=== PATIENT | female | born 1950 | race Caucasian/White ===

== ENCOUNTER 2017-04-11 08:49 | Inpatient (IN) | payer MEDICARE, OTHER ==
[~2017-04-11] VITALS: Ht 167.6 cm; Wt 86.0 kg
--- NOTE | 2017-04-11 08:48 | ED.REPORT ---
HPI-Extremity Problem Lower Date of Service Apr 11, 2017 ED Provider: Dakota Soto Patient is a 65 year old male with a hx of HTN and EtOH abuse who presents to the ED via EMS s/p falling in her kitchen while making breakfast this morning. She landed on her L side and complained of L hip and L arm pain. Medics were unable to get her off the floor due to her pain so the gave her Ketamine to transport her. Patient states that she fell because she simply lost her footing. She denies loss of consciousness or fainting or chest symptoms prior to the fall. She takes lisinopril, metoprolol, amlodipine, and chlorthalidone. Patient last drank last night. She has not eaten yet today. Nursing Notes Stated Complaint: LEFT HIP PAIN Nursing Notes Reviewed: Yes Allergies: Coded Allergies: No Known Allergies (Unverified Allergy, Unknown, 04/11/17) Scheduled Amlodipine (Amlodipine) 5 Mg Tablet 10 MG PO DAILY Lisinopril (Lisinopril) 20 Mg Tablet 40 MG PO BID Metoprolol Succinate ER (Metoprolol Succinate ER) 50 Mg Tab.er.24h 50 MG PO DAILY Pantoprazole DR (Protonix) 40 Mg Tablet 40 MG PO BIDAC General Time Seen by MD: 08:48 Chief Complaint Hip injury left Hx Obtained From: EMS Arrived By: Ambulance Onset Occurred: Just prior to arrival Caused by: Fall on ground Immunizations: Unknown Past Medical History Past Medical History GI bleed HTN irritable bowel syndrome EtOH abuse (5th a day) Past Surgical History Bypass Penectomy Smoking History Current Every Day Smoker Social History Other Social History: Review of Systems Musculoskeletal: Reports: Extremity pain, Joint pain Neurologic: Denies: Change LOC Complete sys rev & neg: except as marked. Physical Exam Initial Vital Signs Vital Signs (First) Date Time Temp Pulse Resp B/P Pulse Ox O2 Delivery O2 Flow Rate FiO2 04/11/17 08:51 36.9 103 18 190/157 100 Room Air Initial VS: Reviewed, Vital signs abnormal Head / Eyes: Atraumatic, Normocephalic Respiratory: Breath sounds normal, Clear to auscultation, No respiratory distress Cardiovascular: Regular rate & rhythm, Heart sounds normal, Intact distal pulses Abdomen / GI: Soft, Non-tender, No guarding, No rebound, No distention Skin: Warm, Dry Neurologic: Alert, Oriented, Nonfocal Psychiatric: Mood/affect normal, Behavior normal, Normal thought content Lower Extremity / Pelvis / MS: Neurologic intact, Vascular intact externally rotated and shortened left lower extremity with normal pulses Ankle / Foot: Neurologic intact, Vascular intact Neck: Atraumatic, Supple, Full range of motion, Non-tender Left Shoulder: Positive: Swelling present... Massive swelling in L upper arm with ecchymosis, crepitus present. Interpretation & Diagnostics Lab Results Interpretation Result Diagram: 04/11/17 0907 04/11/17 0907 Test 04/11/17 09:07 White Blood Count 9.6th/mm3 (3.8-10.1) Red Blood Count 3.94mil/mm3 (3.90-5.20) Hemoglobin 12.0g/dL (12.0-15.6) Hematocrit 34.7% (35.0-46.0) Mean Corpuscular Volume 88.1fL (81-100) Mean Corpuscular Hemoglobin 30.5pg (27.0-35.0) Mean Corpuscular Hemoglobin Concent 34.6% (32.0-37.0) Red Cell Distribution Width 12.8% (12.3-15.4) Platelet Count 263bil/L (150-400) Neutrophils (%) (Auto) 66.4% (40-74) Lymphocytes (%) (Auto) 19.9% (14-46) Monocytes (%) (Auto) 13.4% (4-12) Eosinophils (%) (Auto) 0% (0-5) Basophils (%) (Auto) 0.1% (0-3) Prothrombin Time 10.1sec (8.1-12.5) Prothromb Time International Ratio 0.95ratio Sodium Level 138mEq/L (134-144) Potassium Level 4.0mEq/L (3.5-5.2) Chloride Level 99mEq/L (97-108) Carbon Dioxide Level 14mmol/L (18-29) Blood Urea Nitrogen 31mg/dL (8-27) Creatinine 1.62mg/dL (0.57-1.00) Estimat Glomerular Filtration Rate 46mL/min (>59) Glucose Level 139mg/dL (60-99) Calcium Level 8.4mg/dL (8.5-10.1) Total Bilirubin 0.5mg/dL (0.0-1.2) Aspartate Amino Transf (AST/SGOT) 49U/L (0-50) Alanine Aminotransferase (ALT/SGPT) 21U/L (0-32) Alkaline Phosphatase 90U/L (25-165) Total Protein 7.0g/dL (6.4-8.4) Albumin 3.7g/dL (3.4-5.0) X-Ray Chest Interpretation Chest Xray Interpretation: IMPRESSION: No acute cardiopulmonary disease. Dictated by: Asim Charles M.D. on 04/11/2017 at 10:03 Approved by: Asim Charles M.D. on 04/11/2017 at 10:04 View: Portable, 1 view Interpretation / Wet Read by: Interpret - Radiologist X-Ray Interpretation Xray Interpretation: IMPRESSION: Comminuted impacted fracture of the left humeral neck as before. Dictated by: Asim Charles M.D. on 04/11/2017 at 10:05 Approved by: Asim Charles M.D. on 04/11/2017 at 10:07 X-Ray Ordered: Humerus left Interpretation / Wet Read by: Interpret - Radiologist Xray Interpretation: IMPRESSION: Comminuted impacted left humeral neck fracture. Dictated by: Asim Charles M.D. on 04/11/2017 at 10:04 Approved by: Asim Charles M.D. on 04/11/2017 at 10:05 X-Ray Ordered: Shoulder left Interpretation / Wet Read by: Interpret - Radiologist Xray Interpretation: IMPRESSION: Moderately displaced subtrochanteric spiral fracture of the proximal left femur. Dictated by: Asim Charles M.D. on 04/11/2017 at 10:01 Approved by: Asim Charles M.D. on 04/11/2017 at 10:03 X-Ray Ordered: Pelvis, Hip left Re-Eval/Medical Decision Source of Hx: Old records Re-Evaluation/Progress : Time of Eval: 10:10 Re-Evaluation/Progress Note: Rechecked pt who is now alert and oriented. Discussed imaging results. Discussed plan for admission. Patient understands and agrees with plan. All questions addressed at this time. Patient does not know why she fell but denies LOC. Consultation #1: Referral / Consult Name: Bernard Aguirre DO Consulted With: Orthopedic Call Returned at: 10:05 Wellness Program Administrator: Will see patient, Agrees with eval, Agrees with plan Note: Discussed pt's case. Will see pt. Consultation #2: Referral / Consult Name: Connor Rizvi Consulted With: Hospitalist Call Returned at: 10:23 Wellness Program Administrator: Will see patient, Agrees with eval, Agrees with plan, Accepts admit Note: Discussed pt's case. Accepts admit. Counseled Regarding: Diagnosis, Lab results, Need for admission Discharge & Departure Impression: Primary Impression: Subtrochanteric fracture of femur Encounter type: initial encounter Fracture type: closed Fracture alignment : nondisplaced Laterality: left Qualified Code: S72.25XA - Nondisplaced subtrochanteric fracture of left femur, initial encounter for closed fracture Additional Impression: Fracture of neck of left humerus Encounter type: initial encounter Fracture type: closed Qualified Code: S42.212A - Unspecified displaced fracture of surgical neck of left humerus, initial encounter for closed fracture Disposition: ADMITTED TO HOSPITAL Discharge Condition All VS Reviewed: Yes Condition: Stable Referrals: Thomas Dunbar ND (PCP) Willie Attestation Portions of this note were transcribed by David Hahn. I, Dr. Soto personally performed the history, physical exam and medical decision-making; I reviewed and confirmed the accuracy of the information in the transcribed note. Signed by: Willie Anne, 04/11/17 copies to: Thomas Dunbar ND, Kirk H MD Apr 11, 2017 08:48 DAVID HAHN Apr 11, 2017 09:20
[~2017-04-11 08:49] MED LIST: AMLO5TAB2 PO; LISI-567 PO; METO-272 PO; PANT40TA2 PO
[2017-04-11 08:51] VITALS: BP 190/157; PULSE 103; RESP 18; O2SAT 100
[2017-04-11] MEDS ORDERED: Ondansetron 2 mg/mL 2 mL Inj IVPUSH PRN ×3 (08:55→15:50)
[2017-04-11 09:12] LABS: BASOPHILS % (AUTO) 0.1 % (0-3); EOSINOPHILS % (AUTO) 0 % (0-5); MONOCYTES % (AUTO) 13.4 % (4-12); Mean Corpuscular Hemoglobin 30.5 pg (27.0-35.0); Mean Corpuscular Volume 88.1 fL (81-100); NEUTROPHILS % (AUTO) 66.4 % (40-74); Platelet Count 263 bil/L (150-400)
[2017-04-11 09:27] LABS: INR 0.95 ratio
[2017-04-11] MEDS: HYDROmorphone 1 mg/mL Inj IVPUSH PRN ×3 (10:03→12:53)
--- NOTE | 2017-04-11 10:05 | DRSVH ---
PROCEDURE: X-RAY PELVIS W/LAT HIP (LT) ([id number]) INDICATIONS: 66 year-old female with left hip pain after fall. TECHNIQUE: AP pelvis with lateral view(s) of the left hip(s). COMPARISON: None. FINDINGS: Bones: There is a moderately displaced spiral fracture of the proximal left femoral shaft, extending from the level of the trochanters down 14.3 cm. Pelvic ring appears intact. No suspicious bony lesio ns. Soft tissues: The visualized bowel gas pattern is normal. No suspicious soft tissue calcifications. There is bilateral iliac and femoral atherosclerosis. IMPRESSION: Moderately displaced subtrochanteric spiral fracture of the proximal left femur. Dictated by: Asim Charles M.D. on 04/11/2017 at 10:01 Approved by: Asim Charles M.D. on 04/11/2017 at 10:03
--- NOTE | 2017-04-11 10:06 | DRSVH ---
PROCEDURE: X-RAY CHEST ONE VIEW ([id number]) INDICATIONS: 66 year-old female with left hip fracture after ground level fall. TECHNIQUE: One view of the chest was acquired. COMPARISON: None. FINDINGS: Surgical changes and devices: None. Lungs and pleura: No pleural effusions or pneumothorax. Lungs are clear. Mediastinum: Mediastinal contours appear normal. Heart size is normal. There is aortic atheroscler osis. Bones and chest wall: No suspicious bony lesions. Overlying soft tissues appear unremarkable. IMPRESSION: No acute cardiopulmonary disease. Dictated by: Asim Charles M.D. on 04/11/2017 at 10:03 Approved by: Asim Charles M.D. on 04/11/2017 at 10:04
--- NOTE | 2017-04-11 10:07 | DRSVH ---
PROCEDURE: X-RAY LEFT SHOULDER, MINIMUM TWO VIEWS ([id number]) INDICATIONS: 66 year-old female with left shoulder pain after ground level fall. TECHNIQUE: 3 views of the shoulder were acquired. COMPARISON: None. FINDINGS: Bones: There is a comminuted impacted fracture of the left humeral neck, with involvement of the left greater tuberosity. No suspicious bony lesions. Visualized ribs appear intact. Soft tissues: No suspicious soft tissue calcifications. IMPRESSION: Comminuted impacted left humeral neck fracture. Dictated by: Asim Charles M.D. on 04/11/2017 at 10:04 Approved by: Asim Charles M.D. on 04/11/2017 at 10:05
--- NOTE | 2017-04-11 10:08 | DRSVH ---
PROCEDURE: X-RAY LEFT HUMERUS, MINIMUM TWO VIEWS ([id number]) INDICATIONS: 66 year-old female with left arm pain after fall. TECHNIQUE: 2 views of the humerus were acquired. COMPARISON: [facility], CR, XR SHOULDER MIN 2VW LT, 04/11/2017, 9:19. FINDINGS: Bones: Mildly displaced comminuted impacted fracture of the left humeral neck is again noted. The mo re distal left humeral shaft appears intact. No suspicious bony lesions. Soft tissues: No suspicious soft tissue calcifications. There is significant overlying subcutaneous edema in the proximal and mid left upper arm. IMPRESSION: Comminuted impacted fracture of the left humeral neck as before. Dictated by: Asim Charles M.D. on 04/11/2017 at 10:05 Approved by: Asim Charles M.D. on 04/11/2017 at 10:07
[2017-04-11] MEDS ORDERED: HYDROmorphone 1 mg/mL Inj IVPUSH PRN (10:10)
[2017-04-11] MEDS ORDERED: Ondansetron 2 mg/mL 2 mL Inj IV PRN (10:10)
[2017-04-11] MEDS ORDERED: Alum-Mag Hydrox-Simeth 30 mL Suspension PO PRN ×2 (10:35→15:50)
[2017-04-11 11:15] VITALS: BP 128/68; PULSE 91; RESP 17; O2SAT 95
--- NOTE | 2017-04-11 11:57 | NUR ---
Admission report received, patient admitted to [facility] room 1011 at 1145hrs. assumed care at that time.
[2017-04-11 11:58] VITALS: BP 125/72; PULSE 88; RESP 19; O2SAT 97
[2017-04-11 11:59] LABS: APPEARANCE,URINE HAZY (CLEAR,HAZY); COLOR,URINE YELLOW (YELLOW); OCCULT BLOOD,URINE TRACE (NEGATIVE)
[2017-04-11 12:00] LABS: UROBILINOGEN,URINE NORMAL (NORMAL)
[2017-04-11] MEDS ORDERED: HYG25 PO (12:15)
[2017-04-11] MEDS ORDERED: LISI40TA PO (12:15)
[2017-04-11] MEDS ORDERED: OMEP20CA11 PO (12:15)
[2017-04-11] MEDS ORDERED: Polyethylene Glycol (PEG) 17 Gm Powder PO PRN (15:50)
[2017-04-11] MEDS: Heparin 5,000 Unit/mL Inj SUBQ SCH (16:23)
--- NOTE | 2017-04-11 17:16 | DRSVH ---
PROCEDURE: X-RAY LEFT FEMUR, TWO VIEWS ([id number]) INDICATIONS: trauma TECHNIQUE: 2 views of the femur were acquired. COMPARISON: [facility], CR, XR PELVIS W LATERAL HIP LT, 04/11/2017, 9:14. FINDINGS: Bones: Moderately displaced subtrochanteric spiral fracture again seen involving the proximal left fe mur similar to prior examination. No additional fractures seen. Osteoarthritic changes redemonstrate d. Osteopenia present. Soft tissues: No suspicious soft tissue calcifications or masses. Vascular calcifications indicate atherosclerosis. IMPRESSION: Moderately displaced subtrochanteric spiral fracture of the proximal left femur. Dictated by: Mac MCCAIN Interpreted: Pranav Erazo MD on 04/11/2017 at 14:37 Approved by: Pranav Erazo M.D. on 04/11/2017 at 17:14
[2017-04-11 17:37] VITALS: BP 148/70; PULSE 94; RESP 20; O2SAT 98
--- NOTE | 2017-04-11 18:11 | CONS ---
[address] [address] CONSULTATION REPORT PATIENT: TITO ARANGO : 1950 MR#: [id number] ADMIT: 04/11/2017 JOB ID: [id number] DATE OF SERVICE: 04/11/2017 ORTHOPEDIC CONSULTATION: CHIEF COMPLAINT: Left shoulder and left hip pain. HISTORY OF PRESENT ILLNESS: This is a 66-year-old female that states she was up late last night prepping food. She is unsure if she slipped. She landed directly onto her left shoulder and her left hip. Her was unable to get her up to be transported to the hospital and thus she was transported by ambulance. Upon presentation to [facility] she was diagnosed a proximal humerus as well as a peritrochanteric hip fracture. Orthopedics was thus consulted for further evaluation and treatment. She was admitted to the hospitalist service. The patient is comfortable in bed currently. She has yet to be given a sling but is keeping her arm against her side, which she states is comfortable. She states any motion to the left shoulder or the left hip causes her significant pain. Her left hip feels better propped up on some pillows. She denies any paresthesias to the left upper or lower extremities. She denies any other associated symptoms or injuries. PAST MEDICAL HISTORY: Hypertension. PAST SURGICAL HISTORY: Bypass, panniculectomy. SOCIAL HISTORY: The patient smokes half a pack of cigarettes per day. Drinks a few glasses of wine daily. Denies illicit drug use. She is a retired nurse. FAMILY HISTORY: Noncontributory. MEDICATIONS: Please see electronic medical record for full list of patient's medications. ALLERGIES: No known drug allergies. REVIEW OF SYSTEMS: The patient denies any fevers, sweats, chills, chest pain, short of breath nausea, vomiting, diarrhea. Complains mainly of left shoulder and left hip pain as described in the history of present illness. PHYSICAL EXAMINATION: General: The patient is alert, in no apparent distress. HEENT: Normocephalic, atraumatic. Extraocular movements intact. Nares patent. Lungs: No audible wheeze. No overt signs of respiratory distress. Neuro: Cranial nerves 2-12 are intact. Extremities: On gross observation of the patient's left shoulder, no open wounds, abrasions, or ecchymosis. There is tenderness to palpation of the proximal humerus. No tenderness to the clavicle or to the scapular body. The patient has palpable distal radial and ulnar pulses. She has completely intact sensation in the median, radial, ulnar, and axillary nerve distribution. There is no tenderness to palpation to the elbow or wrist, including the anatomic snuffbox. She has full range of motion of the hand and wrist, including a full composite fist, without any difficulty. Observation of the patient's left hip: The hip is in a flexed position on a pillow and in slight external rotation. There is moderate swelling to the hip and no open wounds or abrasions or ecchymosis. Tenderness to palpation to the proximal femur. No tenderness to palpation to the knee or ankle. She is able to dorsiflex and plantar flex the ankle, but any motion of the knee reproduces the left hip and groin pain. There are palpable dorsalis pedis and posterior tib pulses and completely intact sensation throughout the left lower extremity. DIAGNOSTIC STUDIES: AP of the pelvis, as well as a lateral of the hip, demonstrate a peritrochanteric hip fracture including the intertrochanteric, specifically the lesser trochanter extending to the subtrochanteric region. Four views of the left femur also confirmed the same findings. Two views of the humerus and two views of the left shoulder were obtained, which demonstrate a three part proximal humerus fracture involving the surgical neck and the greater tuberosity. There is mild valgus angulation and mild displacement of the tuberosity. IMPRESSION: 1. Left peritrochanteric hip fracture. 2. Left proximal humerus fracture. PLAN: I discussed with the patient at length her diagnosis. She understands that the left hip will undergo surgical fixation with open reduction and internal fixation of the left peritrochanteric fracture, likely with cables and an intramedullary nail. This will be performed tomorrow and she will be made n.p.o. at midnight. She understands the risks include but are not limited to neurovascular injury, tendon injury, infection, failure of fixation, stiffness, and persistent pain, all of which may require further intervention. The patient had all questions answered. Consent was signed and placed in the chart. In regards to the patient's left shoulder, I will have a sling ordered for her to utilize. She is to stay in the sling at all times. Due to the minimal displacement of her fracture I gave her the option due to this being a polytrauma for continued conservative treatment versus proceeding with open reduction and internal fixation of left proximal humerus in a staged fashion, likely in a few days. The patient understands all the risks, benefits, alternatives, and indications, and has opted to continue with conservative treatment. I will have nursing apply a sling, which she is to stay on at all times for the next two weeks. We will initiate some elbow range of motion at two weeks and continue to follow her along radiographically. She is to be strict nonweightbearing onto the left upper extremity and maintained in the sling.
--- NOTE | 2017-04-11 18:42 | PCM.HPMED ---
Subjective Date of Service Apr 11, 2017 Primary Provider: Admitting Physician: Connor Rizvi Primary Care Physician: Thomas Dunbar ND Attending Physician: Connor Rizvi Chief Complaint: left hip and left shoulder pain History of Present Illness: 65-year-old female, with past history as noted below and notable for hypertension and heavy alcohol use presents after a reported accidental fall and resulting severe left hip and shoulder pain. She says she was in the kitchen and even though she is not sure exactly how she fell she thinks she may have tripped over something. She denies any loss of consciousness or hitting her head. She thinks her left shoulder must have hit the counter before landing on her left hip. She wasn't able to standup due to severe pain and thus EMS was summoned. Per ED report: "Medics were unable to get her off the floor due to her pain so the gave her Ketamine to transport her." Review of Systems: Constitutional: Negative, except as otherwise mentioned in the history above. Ophthalmologic: Negative, except as otherwise mentioned in the history above. Cardiovascular: Negative, except as otherwise mentioned in the history above. Respiratory: Negative, except as otherwise mentioned in the history above. Gastrointestinal: Negative, except as otherwise mentioned in the history above. Genitourinary: Negative, except as otherwise mentioned in the history above. Musculoskeletal: Negative, except as otherwise mentioned in the history above. Neurological: Negative, except as otherwise mentioned in the history above. Psychiatric: Negative, except as otherwise mentioned in the history above. Hematologic/Lymphatic: Negative, except as otherwise mentioned in the history above. Allergic/Immunologic: Negative, except as otherwise mentioned in the history above. Allergies Coded Allergies: No Known Allergies (Unverified Allergy, Unknown, 04/11/17) Home Medications Amlodipine 10 Mg PO DAILY Lisinopril 40 Mg PO BID Metoprolol Succinate ER 50 Mg PO DAILY 30 Days Chlorthalidone 25 Mg PO DAILY Omeprazole 20 Mg PO DAILY Exam Vital Signs & I/O Vital Sign- Last 8 Hours Date Time Temp Pulse Resp B/P Pulse Ox O2 Delivery O2 Flow Rate FiO2 04/11/17 17:37 36.5 94 20 148/70 98 Room Air 04/11/17 11:58 36.9 88 19 125/72 97 Room Air 04/11/17 11:15 91 17 128/68 95 Room Air Lab & Micro Results Laboratory Tests Test 04/11/17 09:07 04/11/17 10:25 White Blood Count 9.6th/mm3 (3.8-10.1) Red Blood Count 3.94mil/mm3 (3.90-5.20) Hemoglobin 12.0g/dL (12.0-15.6) Hematocrit 34.7% (35.0-46.0) Mean Corpuscular Volume 88.1fL (81-100) Mean Corpuscular Hemoglobin 30.5pg (27.0-35.0) Mean Corpuscular Hemoglobin Concent 34.6% (32.0-37.0) Red Cell Distribution Width 12.8% (12.3-15.4) Platelet Count 263bil/L (150-400) Neutrophils (%) (Auto) 66.4% (40-74) Lymphocytes (%) (Auto) 19.9% (14-46) Monocytes (%) (Auto) 13.4% (4-12) Eosinophils (%) (Auto) 0% (0-5) Basophils (%) (Auto) 0.1% (0-3) Prothrombin Time 10.1sec (8.1-12.5) Prothromb Time International Ratio 0.95ratio Sodium Level 138mEq/L (134-144) Potassium Level 4.0mEq/L (3.5-5.2) Chloride Level 99mEq/L (97-108) Carbon Dioxide Level 14mmol/L (18-29) Blood Urea Nitrogen 31mg/dL (8-27) Creatinine 1.62mg/dL (0.57-1.00) Estimat Glomerular Filtration Rate 46mL/min (>59) Glucose Level 139mg/dL (60-99) Calcium Level 8.4mg/dL (8.5-10.1) Total Bilirubin 0.5mg/dL (0.0-1.2) Aspartate Amino Transf (AST/SGOT) 49U/L (0-50) Alanine Aminotransferase (ALT/SGPT) 21U/L (0-32) Alkaline Phosphatase 90U/L (25-165) Total Protein 7.0g/dL (6.4-8.4) Albumin 3.7g/dL (3.4-5.0) Alcohols 41mg/dL (0-10) Urine Color Yellow (YELLOW) Urine Appearance Hazy (CLEAR,HAZY) Urine pH 5.0 (5.0-8.0) Urine Specific [place] 1.020 (1.003-1.035) Urine Protein 30mg/dL (NEG,TRACE) Urine Glucose (UA) Negativemg/dL (NEGATIVE) Urine Ketones Negativemg/dL (NEGATIVE) Urine Occult Blood Trace (NEGATIVE) Urine Nitrite Negative (NEGATIVE) Urine Bilirubin Negative (NEGATIVE) Urine Urobilinogen Normalmg/dL (NORMAL) Urine Leukocyte Esterase Negative (NEGATIVE) Urine RBC 0-2/hpf (0-2) Urine WBC 0-5/hpf (0-5) Urine Epithelial Cells Occasional/hpf (NONE-MOD) Urine Crystals Amorphous urates (NONE Urine Bacteria None/hpf (NONE-FEW) Urine Hyaline Casts None/lpf (NONE) Urine Granular Casts None seen (NONE SEEN) Urine Waxy Casts None seen (NONE SEEN) Urine Red Blood Cell Casts None seen (NONE SEEN) Urine White Blood Cell Casts None seen (NONE SEEN) Urine Mucus None seen (None Seen) Urine Trichomonas None seen (NONE SEEN) Urine Yeast None (NONE SEEN) Urinalysis Comment None Urine Culture Reflexed Not indicated Result Diagram: 04/11/17 0907 04/11/17 0907 PMH Hypertension, tobacco use/exposure, heavy alcohol use although denies any history of withdrawal, tremors, or seizures. Last drink the night before admission. Surgical History Radha-en-Y for weight loss Appendectomy Family History Denies any family history of heart disease. Father with lymphoma in his late 40' s Social History Hx Alcohol Use: Yes Alcoholic Drinks Per Day: 1-2 glasses of wine a night Hx Substance Use: No Hx Tobacco Use: Yes (20 year smoking history. 1/2 ppd) Smoking Status: Current Every Day Smoker Exam Vital Signs Vital Sign - Last Date Time Temp Pulse Resp B/P Pulse Ox O2 Delivery O2 Flow Rate FiO2 04/11/17 17:37 36.5 94 20 148/70 98 Room Air General: Alert, Oriented X3, Cooperative, No Acute Distress Head: Normal Eyes: PERRLA, EOMI, Scleral Icterus Nose: Mucous Membr Moist/[place] Mouth: Mucous Membr Moist/[place] Neck: Supple Chest & Lungs: Chest Wall Normal, Clear to auscultation & percussion Cardiovascular: Regular Rate/Rhythm Pulses: NL carotid, radial, femoral, DP, PT Abdomen: Non-tender, Non-distended, Normoactive bowel tones, Soft Extremities: No cyanosis/clubbing/edma bilat Skin: Other (bruising of left shoulder) Additional Information: Psych: Calm, appropriate Musculoskeletal: Left shoulder tender to palpation and with decreased ROM due to pain. Left hip pain. Lab and Diagnostics Result Diagram: 04/11/1790604/11/17906 X-Rays, CTs and MRIs Date of Service: 04/11/17851 PROCEDURE: X-RAY LEFT SHOULDER, MINIMUM TWO VIEWS ([id number]) IMPRESSION: Comminuted impacted left humeral neck fracture. Dictated by: Asim Charles M.D. on 04/11/2017 at 10:04 Approved by: Asim Charles M.D. on 04/11/2017 at 10:05 Date of Service: 04/11/1752 PROCEDURE: X-RAY LEFT HUMERUS, MINIMUM TWO VIEWS ([id number]) IMPRESSION: Comminuted impacted fracture of the left humeral neck as before. Dictated by: Asim Charles M.D. on 04/11/2017 at 10:05 Approved by: Asim Charles M.D. on 04/11/2017 at 10:07 Date of Service: 04/11/1752 PROCEDURE: X-RAY PELVIS W/LAT HIP (LT) ([id number]) IMPRESSION: Moderately displaced subtrochanteric spiral fracture of the proximal left femur. Dictated by: Asim Charles M.D. on 04/11/2017 at 10:01 Approved by: Asim Charles M.D. on 04/11/2017 at 10:03 Date of Service: 04/11/1752 PROCEDURE: X-RAY CHEST ONE VIEW ([id number]) IMPRESSION: No acute cardiopulmonary disease. Dictated by: Asim Charles M.D. on 04/11/2017 at 10:03 Approved by: Asim Charles M.D. on 04/11/2017 at 10:04 Date of Service: 04/11/17 1230 PROCEDURE: X-RAY LEFT FEMUR, TWO VIEWS ([id number]) IMPRESSION: Moderately displaced subtrochanteric spiral fracture of the proximal left femur. Dictated by: Mac Ayala [facility] Interpreted: Pranav Erazo MD on 04/11/2017 at 14 :37 Approved by: Pranav Erazo M.D. on 04/11/2017 at 17:14 12-lead ECG Not available Assessment & Plan 65-year-old female, with past history as noted below and notable for hypertension and heavy alcohol use presents after a reported accidental fall and resulting severe left hip and shoulder pain. # Acute comminuted impacted left humeral neck fracture after ground level fall, present on admission. - Appreciate ortho consult. Will followup with recs - Apply a sling, per ortho consult, which she is to stay on at all times for the next two weeks. - She is to be strict nonweightbearing onto the left upper extremity and maintain in the sling. - Continue with supportive care including IV Morphine prn for now # Acute moderately displaced subtrochanteric spiral fracture of the proximal left femur after ground level fall. Present on admission - Further management per ortho consult. - Tentative plan is for surgical fixation with open reduction and internal fixation of the left peritrochanteric fracture in the morning - Continue with supportive care as noted above # History of hypertension. Stable - Continue with home dose Amlodipine, Lisinopril, and Metoprolol - Hold Clorthalidone and hydrate more before anticipated surgery # History of heavy alcohol use - No evidence of active withdrawal and patient denies any history of withdrawals - CIWA protocol as needed # History of tobacco dependence - Patient advised about quitting - Nicotine patch during hospital # Acute kidney injury on top of possible chronic kidney disease, present on admission - Last known Cr is from 2013 which was 1.16 - Avoid nephrotoxic meds - Hold Chlorthalidone - IVF - Check UA - Followup repeat labs Expected length of hospital stay is greater than 2 midnights and likely 3 days GI Prophylaxis: Not indicated VTE Prophylaxis: Sub-Q Heparin (Unfractionated) VTE Mechanical Devices: Intermittant Pneumatic CD Resuscitation Status: CPR: Attempt Resuscitation (discussed and verified with patient) Time spent 60 min Connor Rizvi Apr 11, 2017 18:42
[2017-04-11 19:40] VITALS: BP 138/71; PULSE 90; RESP 20; O2SAT 95
[2017-04-11] MEDS: 0.9% Sodium Chloride 1,000 ML IV SCH (23:01)
[2017-04-12] VITALS (11 sets, daily range): BP systolic 124–169; BP diastolic 69–95; PULSE 91–109; RESP 14–18; O2SAT 94–100
[2017-04-12] MEDS: Heparin 5,000 Unit/mL Inj SUBQ SCH ×3 (01:14→15:41)
--- NOTE | 2017-04-12 04:52 | NUR ---
Pain Patient states her pain is fairly well managed with 2mg Morphine q4. Patient on bed rest. NPO since midnight. Sling on left arm for stabilization. Patient denies N/V. Last CIWA score 0. Porter patent and draining to gravity. Vitals stable. Care continues.
[2017-04-12 05:31] LABS: Mean Corpuscular Hemoglobin 30.4 pg (27.0-35.0); Mean Corpuscular Volume 91.1 fL (81-100)
[2017-04-12 06:04] LABS: Magnesium 1.7 mg/dL (1.6-2.6)
[2017-04-12] MEDS: Pantoprazole 20 mg ER24 Tablet PO SCH (06:30)
[2017-04-12] MEDS: Multivit-Miner-Folic Acid-Iron Tablet PO SCH (07:42)
[2017-04-12] MEDS: MeTOProlol XL 50 mg ER24 Tablet PO SCH (08:24)
[2017-04-12] MEDS ORDERED: Lidocaine PF 1% 30 mL Inj ONE (08:34)
[2017-04-12] MEDS ORDERED: Neostigmine 1 mg/mL 10 mL Inj ONE (08:34)
[2017-04-12] MEDS ORDERED: Ondansetron 2 mg/mL 2 mL Inj ONE (08:34)
[2017-04-12] MEDS ORDERED: HYDROmorphone 1 mg/mL Inj ONE (08:34)
[2017-04-12] MEDS ORDERED: Remifentanil 1 mg/3 mL Inj ONE (08:34)
[2017-04-12] MEDS ORDERED: Dexamethasone 4 mg/mL Inj ONE (08:34)
[2017-04-12] MEDS ORDERED: EPHEDrine/NS 5 mg/mL 5 mL Syringe ONE (08:34)
[2017-04-12] MEDS ORDERED: fentaNYL-PF 50 mCg/mL 2 mL Inj ONE (08:34)
[2017-04-12] MEDS ORDERED: Rocuronium 10 mg/mL 5 mL Inj ONE (08:34)
[2017-04-12] MEDS ORDERED: Propofol 10,000 mCg/mL 20 mL Inj ONE (08:34)
[2017-04-12] MEDS ORDERED: Glycopyrrolate 0.2 MG/ML 1mL Inj ONE (08:34)
[2017-04-12] MEDS: 0.9% Sodium Chloride 1,000 ML IV SCH ×2 (08:45→23:27)
[2017-04-12] MEDS ORDERED: Lactated Ringer's 1,000 ML IV SCH (15:29)
[2017-04-12] MEDS ORDERED: Lactated Ringer's 500 ML IV PRN (15:29)
--- NOTE | 2017-04-12 15:29 | PCM.HPANE ---
Patient Data Surgeon Admitting Provider:Connor Rizvi Attending Provider:Connor Rizvi Primary Care Physician:Thomas Dunbar ND Other Provider: Reason for Visit Fall,Lt Intertrochanteric Frx,Lt Humerus Frx Ht/WT & BMI Height (Feet): 5 Height (Inches): 6.00 Weight (Kilograms): 86.000 Body Mass Index 30.47 Allergies Coded Allergies: No Known Allergies (Unverified Allergy, Unknown, 04/11/17) Past Anesthesia History Anesthesia History: Denies:: Abnormal Airway, Anesthesia Reactions, Difficult Intubation, Fam Anesthesia Reaction, Fam Malignant Hypertherm, Malignant Hyperthermia Diabetes History Hx Diabetes?: Yes MRSA MRSA: No Medications Blood Thinner: Aspirin Reported Medications Chlorthalidone 25 Mg Ebmaoe29 Mg PO DAILY HIGH BLOOD PRESSURE #30 TABLET 04/11/17 Omeprazole 20 Mg Capsule.dr20 Mg PO DAILY Ref 0 04/11/17 Lisinopril 40 Mg Iusxor84 Mg PO BID 30 Days Ref 0 04/11/17 Metoprolol Succinate ER 50 Mg Tab.er.24h50 Mg PO DAILY 30 Days Ref 0 12/10/13 Amlodipine 5 Mg Rgldwg47 Mg PO DAILY Ref 0 12/10/13 Discontinued Reported Medications Lisinopril 20 Mg Hiwxer19 Mg PO BID 30 Days Ref 0 12/10/[address] (Protonix)40 Mg Lafzra80 Mg PO BIDAC 30 Days Prov:Taylor Jolly MD 12/12/13 History History of ENT Problems?: No HEENT History: Denies:: Abnormal Airway Cataracts Difficult Intubation Dysphagia Glaucoma Hearing Problem Sinus Problem Denture Type: None Teeth Condition: Within Normal Limits Hx of Heart Problems?: Yes Cardiovascular History: Positive for:: Hypertension Denies:: AICD Atrial Fibrillation Cardiac Surgery Chest Pain Congestive Heart Failure Edema Heart Murmur Irregular Heartbeat Pacemaker Thrombophlebitis Valvular Heart Disease Hx of Respiratory Problem?: No Respiratory History: Denies:: Asthma COPD Chest Surgery Cough Dyspnea Emphysema Hemoptysis Pneumonia Tuberculosis Hx Neurologic Problems?: No Neurological History: Denies:: Alzheimer's Disease CVA Dementia Dizziness Headaches Parkinson's Disease Seizures Hx of GI Problems?: Yes Hx of Problems?: No Genitourinary History: Denies:: HX of Hemodialysis Kidney Stones Urinary Tract Infection HX of Peritoneal Dialysis: No Female Hx: Denies:: Currently Endometriosis Pelvic Inflammatory Problems with Breasts? Hx Musculoskeletal Problems?: No Musculoskeletal History: Denies:: Back Injury Joint Replacement Musculoskeletal Trauma Hx of Psycho/Social Problems?: No Psycho Social History: Denies:: Anxiety Bipolar Disorder Hx Depression Suicide Attempt Hx Surgeries?: Yes (gastric bypass, ) Hx Any Other Health Problems?: Yes Other History: Positive for:: Hospitalization (gastric bypass, stomach ulcer) Denies:: Cancer Endocrine Disease Thyroid Disease History Blood Transfusions: Positive for:: Accept Blood Products? Blood Transfusions Denies:: Blood Transfuse Reaction Hx Diabetes: Yes Hx Alcohol Use: YesAlcoholic Drinks Per Day: 1-2 glasses of wine a nightHx Substance Use: No Smoking Status: Current Every Day Smoker Have You Smoked inLast 12 mo: YesApprox How Many Cigarettes/day: 5-7cigarette/ day approx 2-3 packs a week Stop/Bang Treated for Sleep Apnea?: No Do You Have a CPAP Machine?: No S-Snoring: Do You Snore Loudly: No T-Tired: feel tired, fatigued: Yes O-Obsered: Observed not breath: No P-Blood Pressure: treated: Yes B- Body Mass Index > 35 kg/m2: No A- Age over 50: No N- Neck Large Circumference: No G- Gender Male: No CHARLIE Total Score: 2 CHARLIE Risk Assessment: Low Risk, <3 Yes Risk Assessment Category Category 1A: Patient has history of documented sleep apnea, and HAS NOT received any narcotic, sedative or anesthesia administration during this stay. Category 1B: Patient has history of documented sleep apnea, and HAS received any narcotic , sedative or anesthesia administration during this stay Category 2: Patient has SUSPECTED Obstructive Sleep Apnea, and HAS received any narcotic , sedative or anesthesia administration during this stay. Category 3: Patient has SUSPECTED Obstructive Sleep Apnea and HAS NOT received narcotic, sedative or anesthesia administration during this stay. Category 4: Outpatient in Procedural Areas with known sleep apnea or who screen positive for High Risk via the STOP/BANG questionnaire. Exam Exam Vital Signs Vital Signs Date Time Temp Pulse Resp B/P Pulse Ox O2 Delivery O2 Flow Rate FiO2 04/12/17 09:15 37.3 104 16 161/77 95 Room Air 04/12/17 08:19 103 145/79 95 04/12/17 04:53 37.3 109 18 147/74 94 Room Air General Appearance: Alert, Oriented X3, Cooperative, No Acute Distress HEENT/AIRWAY: MP 3, Neck Movement (from, 3 fb) Lungs: Clear to Auscultation Heart: Regular Rate/Rhythm Meds/Labs/Diagnostics Admission Meds Current Medications Heparin Sodium (Porcine) (Heparin Inj) 5,000 unit Q8 SUBQ Last administered on 04/12/17 01:14; Start 04/11/17 at 16:30 Amlodipine Besylate (Norvasc) 10 mg DAILY PO Last administered on 04/12/17 08: 24; Start 04/12/17 at 08:30 Lisinopril (Zestril) 40 mg BID PO Last administered on 04/12/17 08:24; Start 04/11/17 at 20:30 Metoprolol Succinate (Toprol XL) 50 mg DAILY PO Last administered on 04/12/17 08:24; Start 04/12/17 at 08:30 Thiamine HCl 100 mg 100 mg DAILY PO Last administered on 04/11/17 20:02; Start 04/11/17 at 19:25 Sodium Chloride (Normal Saline) 1,000 ml @ 100 mls/hr Q10H IV Last administered on 04/12/17 08:45; Start 04/11/17 at 22:45 Labs Test 04/11/17 09:07 04/11/17 10:25 04/12/17 05:07 Neutrophils (%) (Auto) 66.4% (40-74) Lymphocytes (%) (Auto) 19.9% (14-46) Monocytes (%) (Auto) 13.4% (4-12) Eosinophils (%) (Auto) 0% (0-5) Basophils (%) (Auto) 0.1% (0-3) Prothrombin Time 10.1sec (8.1-12.5) Prothromb Time International Ratio 0.95ratio Total Bilirubin 0.5mg/dL (0.0-1.2) Aspartate Amino Transf (AST/SGOT) 49U/L (0-50) Alanine Aminotransferase (ALT/SGPT) 21U/L (0-32) Alkaline Phosphatase 90U/L (25-165) Total Protein 7.0g/dL (6.4-8.4) Albumin 3.7g/dL (3.4-5.0) Alcohols 41mg/dL (0-10) Urine Color Yellow (YELLOW) Urine Appearance Hazy (CLEAR,HAZY) Urine pH 5.0 (5.0-8.0) Urine Specific [place] 1.020 (1.003-1.035) Urine Protein 30mg/dL (NEG,TRACE) Urine Glucose (UA) Negativemg/dL (NEGATIVE) Urine Ketones Negativemg/dL (NEGATIVE) Urine Occult Blood Trace (NEGATIVE) Urine Nitrite Negative (NEGATIVE) Urine Bilirubin Negative (NEGATIVE) Urine Urobilinogen Normalmg/dL (NORMAL) Urine Leukocyte Esterase Negative (NEGATIVE) Urine RBC 0-2/hpf (0-2) Urine WBC 0-5/hpf (0-5) Urine Epithelial Cells Occasional/hpf (NONE-MOD) Urine Crystals Amorphous urates (NONE Urine Bacteria None/hpf (NONE-FEW) Urine Hyaline Casts None/lpf (NONE) Urine Granular Casts None seen (NONE SEEN) Urine Waxy Casts None seen (NONE SEEN) Urine Red Blood Cell Casts None seen (NONE SEEN) Urine White Blood Cell Casts None seen (NONE SEEN) Urine Mucus None seen (None Seen) Urine Trichomonas None seen (NONE SEEN) Urine Yeast None (NONE SEEN) Urinalysis Comment None Urine Culture Reflexed Not indicated White Blood Count 7.7th/mm3 (3.8-10.1) Red Blood Count 3.49mil/mm3 (3.90-5.20) Hemoglobin 10.6g/dL (12.0-15.6) Hematocrit 31.8% (35.0-46.0) Mean Corpuscular Volume 91.1fL (81-100) Mean Corpuscular Hemoglobin 30.4pg (27.0-35.0) Mean Corpuscular Hemoglobin Concent 33.3% (32.0-37.0) Red Cell Distribution Width 13.2% (12.3-15.4) Platelet Count 190bil/L (150-400) Sodium Level 136mEq/L (134-144) Potassium Level 4.5mEq/L (3.5-5.2) Chloride Level 102mEq/L (97-108) Carbon Dioxide Level 21mmol/L (18-29) Blood Urea Nitrogen 29mg/dL (8-27) Creatinine 1.30mg/dL (0.57-1.00) Estimat Glomerular Filtration Rate 59mL/min (>59) Glucose Level 129mg/dL (60-99) Calcium Level 8.0mg/dL (8.5-10.1) Magnesium Level 1.7mg/dL (1.6-2.6) Plan Impression Patient chart reviewed, patient interviewed and anesthestic plan with risks, benefits, and alternatives discussed, and informed consent obtained. NPO per Anesth. Guidelines: Yes ASA Physical Status: ASA2 Mod Systemic Disease Anesthetic Plan: GA Bene/Risks/Altern/Consents: Yes HP Complete Prior to Induction: Yes Other Discussed GETA with patient and her . All questions were answered and she agrees to proceed. Alfredo Mcpherson MD Apr 12, 2017 12:07
[2017-04-12] MEDS ORDERED: Ondansetron 2 mg/mL 2 mL Inj IVPUSH PRN ×2 (15:30→17:15)
[2017-04-12] MEDS ORDERED: HYDROmorphone 1 mg/mL Inj IVPUSH PRN (15:30)
[2017-04-12] MEDS ORDERED: fentaNYL-PF 50 mCg/mL 2 mL Inj IVPUSH PRN (15:30)
[2017-04-12] MEDS ORDERED: Dexamethasone 4 mg/mL Inj IVPUSH PRN (15:30)
[2017-04-12] MEDS ORDERED: EPHEDrine Sulfate 50 mg/mL Inj IVPUSH PRN (15:30)
[2017-04-12] MEDS ORDERED: Bupivacaine-MPF 0.25% 30 mL Inj INFILTRATE ONE (15:30)
[2017-04-12] MEDS ORDERED: Phenylephrine 10,000 mCg/mL Inj IVPUSH PRN (15:30)
[2017-04-12] MEDS ORDERED: MetoCLOpramide 5 mg/mL 2 mL Inj IVPUSH PRN (15:30)
--- NOTE | 2017-04-12 16:17 | PCM.PNMED ---
Subjective Date of Service Apr 12, 2017 Subjective Denies any new issues/complaints Exam Vital Signs Vital Sign - Last Date Time Temp Pulse Resp B/P Pulse Ox O2 Delivery O2 Flow Rate FiO2 04/12/17 09:15 37.3 104 16 161/77 95 Room Air Intake and Output 04/11/17 04/11/17 04/12/17 Cumulative From/Thru 15:00 23:00 07:00 04/11/17 11:58 - 04/12/17 05:53 Intake Total 800 ml 800 ml 1600 ml Output Total 800 ml 1450 ml 2250 ml Balance 0 ml -650 ml -650 ml Intake Oral 800 ml 800 ml 1600 ml Output Urine Total 800 ml 1450 ml 2250 ml # Bowel Movements 0 0 Exam General: Alert, Cooperative, No Acute Distress Head: Normal Eyes: Scleral Icterus Nose: Mucous Membr Moist/[place] Mouth: Mucous Membr Moist/[place] Neck: Supple Chest & Lungs: Chest Wall Normal, Clear to auscultation bilat Cardiovascular: Regular Rate/Rhythm Pulses: NL DP, PT Abdomen: Non-tender, Non-distended, Normoactive bowel tones, Soft Extremities: No cyanosis/clubbing/edema bilat Psych: Calm, appropriate IVs and Medications Medications Reviewed: Medications were reviewed in detail Lab and Diagnostics Result Diagram: 04/12/17 0507 04/12/17 050 X-Rays, CTs and MRIs Date of Service: 04/11/17 0852 PROCEDURE: X-RAY LEFT SHOULDER, MINIMUM TWO VIEWS ([id number]) IMPRESSION: Comminuted impacted left humeral neck fracture. Dictated by: Asim Charles M.D. on 04/11/2017 at 10:04 Approved by: Asim Charles M.D. on 04/11/2017 at 10:05 Date of Service: 04/11/1752 PROCEDURE: X-RAY LEFT HUMERUS, MINIMUM TWO VIEWS ([id number]) IMPRESSION: Comminuted impacted fracture of the left humeral neck as before. Dictated by: Asim Charles M.D. on 04/11/2017 at 10:05 Approved by: Asim Charles M.D. on 04/11/2017 at 10:07 Date of Service: 04/11/17 0852 PROCEDURE: X-RAY PELVIS W/LAT HIP (LT) ([id number]) IMPRESSION: Moderately displaced subtrochanteric spiral fracture of the proximal left femur. Dictated by: Asim Charles M.D. on 04/11/2017 at 10:01 Approved by: Asim Charles M.D. on 04/11/2017 at 10:03 Date of Service: 04/11/17 0852 PROCEDURE: X-RAY CHEST ONE VIEW ([id number]) IMPRESSION: No acute cardiopulmonary disease. Dictated by: Asim Charles M.D. on 04/11/2017 at 10:03 Approved by: Asim Charles M.D. on 04/11/2017 at 10:04 Date of Service: 04/11/17 1230 PROCEDURE: X-RAY LEFT FEMUR, TWO VIEWS ([id number]) IMPRESSION: Moderately displaced subtrochanteric spiral fracture of the proximal left femur. Dictated by: Mac Ayala [facility] Interpreted: Pranav Erazo MD on 04/11/2017 at 14 :37 Approved by: Pranav Erazo M.D. on 04/11/2017 at 17:14 12-lead ECG Not available Assessment & Plan 65-year-old female, with past history as noted below and notable for hypertension and heavy alcohol use presents after a reported accidental fall and resulting severe left hip and shoulder pain. # Acute moderately displaced subtrochanteric spiral fracture of the proximal left femur after ground level fall. Present on admission - Further management per ortho consult. - Tentative plan is for surgical fixation with open reduction and internal fixation of the left peritrochanteric fracture today - Continue with supportive care as noted above # Acute comminuted impacted left humeral neck fracture after ground level fall, present on admission. - Appreciate ortho consult. Will followup with recs - Apply a sling, per ortho consult, which she is to stay on at all times for the next two weeks. - She is to be strict nonweightbearing onto the left upper extremity and maintain in the sling. - Continue with supportive care including IV Morphine prn for now # Acute kidney injury on top of possible chronic kidney disease, present on admission. Improving - Last known Cr is from 2013 which was 1.16 - Avoid nephrotoxic meds - Hold Chlorthalidone - IVF - Followup repeat labs # History of hypertension. Stable - Continue with home dose Amlodipine, Lisinopril, and Metoprolol - Hold Clorthalidone and hydrate more before anticipated surgery # History of heavy alcohol use - No evidence of active withdrawal and patient denies any history of withdrawals - CIWA protocol as needed # History of tobacco dependence - Patient advised about quitting - Nicotine patch during hospital Dispo: 2-3 days GI Prophylaxis: Not indicated VTE Prophylaxis: Sub-Q Heparin (Unfractionated) VTE Mechanical Devices: Intermittant Pneumatic CD Resuscitation Status: CPR: Attempt Resuscitation (discussed and verified with patient) Connor Rizvi Apr 12, 2017 16:17
--- NOTE | 2017-04-12 16:26 | NUR ---
Social Work: Brief Note Data: Pt is a 66 y/o female admitted for fall, LT intertrochanteric frx, lt humerus. Pt's PCP is Dr Dunbar, pt's insurance is Medicare with [employer] Supp. EMR reviewed. Readmit score is 1, low. Pt has hx of ETOH use. PT is pending. LABORATORY ANALYST attempted to meet with pt at bedside, pt in surgery. Will attempt again at a later time. Assessment: Pt who is independent at baseline. Plan: LABORATORY ANALYST will complete initial assessment at a later time. LABORATORY ANALYST will follow up post PT assessment and after surgery. LABORATORY ANALYST will continue to follow. AN Martell
[2017-04-12] MEDS ORDERED: Polyethylene Glycol (PEG) 17 Gm Powder PO PRN (17:15)
[2017-04-12] MEDS ORDERED: Magnesium Hydroxide 10 mL Oral Concentration PO PRN (17:15)
[2017-04-12] MEDS ORDERED: Sodium Biphos-Phos 133 mL Enema RECTAL PRN (17:15)
[2017-04-12] MEDS ORDERED: diphenhydrAMINE 25 mg Capsule PO PRN (17:15)
--- NOTE | 2017-04-12 17:40 | PCM.ANEP1 ---
Post Anesthesia PACU Phase 1 Assessment Anesthetic Administered: GA Level of Alertness: Awake, talking LUI's with Equal Strength: Yes Pain: No (rn aware) Nausea or Vomiting: No CV Function & Hydration Stable: Yes Airway Device: Oxygen Delivery: Simple Mask Lungs: Clear to Auscultation Dermatome Level: Full Sensation PACU Phase 2 Assessment Complications: No Follow up Care: N/A Patient Instructions Provided: N/A Alfredo Mcpherson MD Apr 12, 2017 17:40
--- NOTE | 2017-04-12 18:33 | DRSVH ---
PROCEDURE: X-RAY PELVIS W/LAT HIP (LT) ([id number]) INDICATIONS: post op TECHNIQUE: AP pelvis with lateral view(s) of the left hip(s). COMPARISON: None. FINDINGS: Bones: No previously unidentified fractures or dislocations, and the fracture previously identified earlier 04/11/17 has been treated by placement of a long medullary kory with a single cerclage wire and a dynamic hip screw crossing the fracture planes, establishing virtual anatomic alignment.. Pelvic r ing appears intact. No suspicious bony lesions. Soft tissues: The visualized bowel gas pattern is normal. No suspicious soft tissue calcifications. IMPRESSION: Virtual anatomic alignment established after ORIF of a comminuted and moderately complex proximal left femur fracture. Dictated by: Pranav Erazo M.D. on 04/12/2017 at 18:30 Approved by: Pranav Erazo M.D. on 04/12/2017 at 18:32
--- NOTE | 2017-04-12 19:21 | NUR ---
Post op Pt arrived at 1810 from OR on bed. Left arm in sling. Left leg has bulky dressing with ABD and medipore and is CDI. Ice bag in place. Pt on RA, VSS, LUI, A&O x 3. C/o pain 03/12, meds given. Weak pedal pulses bilaterally, but extremities warm and have good flexion and extension. Pt eager to advance diet and asking for water. Bed in low, call light in reach, care continues.
[2017-04-12] MEDS: Senna-Docusate 8.6-50 mg Tablet PO SCH (21:40)
[2017-04-12] MEDS: CeFAZolin Inj 2 GM in IV Premix 1 EACH IV SCH (23:26)
[2017-04-13 00:05] VITALS: BP 109/69; PULSE 86; RESP 18; O2SAT 95
[2017-04-13] MEDS: Sodium Chloride LOK Flush 10 mL Syringe IV SCH ×3 (00:30→14:39)
[2017-04-13] MEDS: Heparin 5,000 Unit/mL Inj SUBQ SCH ×4 (00:35→23:42)
--- NOTE | 2017-04-13 03:16 | NUR ---
Pain Patient states her pain level has been well managed by 5mg Roxycodone q4. Patient not up OOB this shift. Porter patent and draining. Sling in place on left arm. Patient denies any nausea after eating her dinner. Vitals stable. Last CIWA score 0. Care continues.
[2017-04-13 04:33] VITALS: BP 143/84; PULSE 88; RESP 18; O2SAT 97
[2017-04-13] MEDS: 0.9% Sodium Chloride 1,000 ML IV SCH ×2 (04:45→14:39)
[2017-04-13 05:24] LABS: BASOPHILS % (AUTO) 0.1 % (0-3); EOSINOPHILS % (AUTO) 0 % (0-5); MONOCYTES % (AUTO) 9.9 % (4-12); Mean Corpuscular Hemoglobin 30.5 pg (27.0-35.0); Mean Corpuscular Volume 91.8 fL (81-100); NEUTROPHILS % (AUTO) 79.5 % (40-74); Platelet Count 201 bil/L (150-400)
[2017-04-13 05:42] LABS: Magnesium 1.7 mg/dL (1.6-2.6)
[2017-04-13] MEDS: Pantoprazole 20 mg ER24 Tablet PO SCH (06:21)
--- NOTE | 2017-04-13 07:49 | PCM.PNORTH ---
Subjective Date of Service: Apr 13, 2017 Visit Information: Reason for Visit Fall,Lt Intertrochanteric Frx,Lt Humerus Frx Surgery/Surgery Date Post-Op Day # Date of Admission: Apr 11, 2017 at 10:43 Hospital Day # Subjective Status post day #1 right hip IM nail with cable fixation of mid shaft femur fracture as well. Patient is also post left proximal humerus fracture treating nonoperatively in a sling. Patient states her pain is well controlled today. She understands that she will not be able to bear weight on the left shoulder or left lower extremity. She states that she has significant help at home and would definitely like to be discharged to home, would not like to consider assisted facility. Postop General: No Complaints, No Shortness of Breath, No Chest Pain Objective Exam Objective Patient is alert and oriented 3. Answering questions appropriately. Patient is sitting up in the bed and not in acute distress today. Dressings are clean dry and intact. Calf is soft and non-tender. Sensation and pulses intact, patient able to wiggle toes. Left arm is in a sling. Able to wiggle fingers, capillary refill less than 3 seconds, radial pulses intact. Vital Signs and I/O Vital Sign - Last Date Time Temp Pulse Resp B/P Pulse Ox O2 Delivery O2 Flow Rate FiO2 04/13/17 04:33 36.8 88 18 143/84 97 Room Air 04/12/17 17:50 8 100 Intake and Output 04/12/17 04/12/17 04/13/17 Cumulative From/Thru 15:00 23:00 07:00 04/11/17 11:58 - 04/13/17 06:34 Intake Total 2256 ml 0 ml 1834 ml 5690 ml Output Total 1850 ml 950 ml 5050 ml Balance 2256 ml -1850 ml 884 ml 640 ml Intake Oral 0 ml 800 ml 2400 ml IV Total 2256 ml 1034 ml 3290 ml Output Urine Total 1350 ml 950 ml 4550 ml Estimated Blood Loss 500 ml 500 ml # Bowel Movements 0 0 Lab & Micro Results Laboratory Tests Test 04/13/17 05:00 White Blood Count 9.5th/mm3 (3.8-10.1) Red Blood Count 3.28mil/mm3 (3.90-5.20) Hemoglobin 10.0g/dL (12.0-15.6) Hematocrit 30.1% (35.0-46.0) Mean Corpuscular Volume 91.8fL (81-100) Mean Corpuscular Hemoglobin 30.5pg (27.0-35.0) Mean Corpuscular Hemoglobin Concent 33.2% (32.0-37.0) Red Cell Distribution Width 12.7% (12.3-15.4) Platelet Count 201bil/L (150-400) Neutrophils (%) (Auto) 79.5% (40-74) Lymphocytes (%) (Auto) 10.2% (14-46) Monocytes (%) (Auto) 9.9% (4-12) Eosinophils (%) (Auto) 0% (0-5) Basophils (%) (Auto) 0.1% (0-3) Sodium Level 132mEq/L (134-144) Potassium Level 5.0mEq/L (3.5-5.2) Chloride Level 99mEq/L (97-108) Carbon Dioxide Level 22mmol/L (18-29) Blood Urea Nitrogen 28mg/dL (8-27) Creatinine 1.23mg/dL (0.57-1.00) Estimat Glomerular Filtration Rate 63mL/min (>59) Glucose Level 185mg/dL (60-99) Calcium Level 8.0mg/dL (8.5-10.1) Magnesium Level 1.7mg/dL (1.6-2.6) Result Diagram: 04/13/17 0500 04/13/17 0500 Assessment & Plan Impression Status post day #1 right hip IM nail with cable fixation of mid shaft femur fracture as well. Patient is also post left proximal humerus fracture treating nonoperatively in a sling. Patient will need wheelchair at home. Will plan discharge planning to be set up as goals to return to home. Problems: Plan Patient will begin working with physical therapy today for ADL training and transfers. Patient is nonweightbearing to the left upper and lower extremity and will not be able to use a walker or ambulate on her own. She understands that she will need to eat and use the restroom on her own, and have pain well controlled and be cleared for safe transfers before able to discharge to home. I will leave a prescription for wheelchair in the chart today. Anticipate dressing change tomorrow. Patient will continue heparin or DVT prophylaxis as per hospitalist recommendation. Patient will need to be converted to home DVT prophylaxis. Lovenox 40 mg subcutaneous daily 2 weeks, then Aspirin 325 mg by mouth twice a day would be sufficient for this. Patient may take aspirin only if unwilling to take the Lovenox. Thank you to the hospitalist team for managing her other medical conditions. Discharge: Anticipate that patient will be able to be discharged to home as soon as postop day 2 or 3, will observe as she works with physical therapy for their recommendation as well. VTE Prophylaxis: Sub-Q Heparin (Unfractionated) Resuscitation Status: CPR: Attempt Resuscitation (discussed and verified with patient) Akash Nelson PA-C Apr 13, 2017 07:49
[2017-04-13 08:01] VITALS: BP 133/65; PULSE 82; RESP 20; O2SAT 97
[2017-04-13] MEDS: CeFAZolin Inj 2 GM in IV Premix 1 EACH IV SCH (08:38)
[2017-04-13] MEDS: MeTOProlol XL 50 mg ER24 Tablet PO SCH (08:39)
[2017-04-13] MEDS: Multivit-Miner-Folic Acid-Iron Tablet PO SCH (08:39)
[2017-04-13] MEDS: Senna-Docusate 8.6-50 mg Tablet PO SCH ×2 (08:39→19:42)
[2017-04-13 12:00] VITALS: BP 127/66; PULSE 82; RESP 22; O2SAT 97
--- NOTE | 2017-04-13 15:00 | PCM.PNMED ---
Subjective Date of Service Apr 13, 2017 Subjective Denies any new issues/complaints Exam Vital Signs Vital Sign - Last Date Time Temp Pulse Resp B/P Pulse Ox O2 Delivery O2 Flow Rate FiO2 04/13/17 12:00 36.8 82 22 127/66 97 Room Air 04/12/17 17:50 8 100 Intake and Output 04/12/17 04/12/17 04/13/17 Cumulative From/Thru 15:00 23:00 07:00 04/11/17 11:58 - 04/13/17 06:34 Intake Total 2256 ml 0 ml 1834 ml 5690 ml Output Total 1850 ml 950 ml 5050 ml Balance 2256 ml -1850 ml 884 ml 640 ml Intake Oral 0 ml 800 ml 2400 ml IV Total 2256 ml 1034 ml 3290 ml Output Urine Total 1350 ml 950 ml 4550 ml Estimated Blood Loss 500 ml 500 ml # Bowel Movements 0 0 Exam General: Alert, Cooperative, No Acute Distress Head: Normal Eyes: Scleral Icterus Nose: Mucous Membr Moist/Amonate Mouth: Mucous Membr Moist/Amonate Neck: Supple Chest & Lungs: Chest Wall Normal, Clear to auscultation bilat Cardiovascular: Regular Rate/Rhythm Pulses: NL DP, PT Abdomen: Non-tender, Non-distended, Normoactive bowel tones, Soft Extremities: No cyanosis/clubbing/edema bilat Psych: Calm, appropriate IVs and Medications Medications Reviewed: Medications were reviewed in detail Lab and Diagnostics Result Diagram: 04/13/17 0500 04/13/17 0500 X-Rays, CTs and MRIs Date of Service: 04/11/17 0852 PROCEDURE: X-RAY LEFT SHOULDER, MINIMUM TWO VIEWS ([id number]) IMPRESSION: Comminuted impacted left humeral neck fracture. Dictated by: Asim Charles M.D. on 04/11/2017 at 10:04 Approved by: Asim Charles M.D. on 04/11/2017 at 10:05 Date of Service: 04/11/17 0852 PROCEDURE: X-RAY LEFT HUMERUS, MINIMUM TWO VIEWS ([id number]) IMPRESSION: Comminuted impacted fracture of the left humeral neck as before. Dictated by: Asim Charles M.D. on 04/11/2017 at 10:05 Approved by: Asim Charles M.D. on 04/11/2017 at 10:07 Date of Service: 04/11/17 0852 PROCEDURE: X-RAY PELVIS W/LAT HIP (LT) ([id number]) IMPRESSION: Moderately displaced subtrochanteric spiral fracture of the proximal left femur. Dictated by: Asim Charles M.D. on 04/11/2017 at 10:01 Approved by: Asim Charles M.D. on 04/11/2017 at 10:03 Date of Service: 04/11/17 0852 PROCEDURE: X-RAY CHEST ONE VIEW ([id number]) IMPRESSION: No acute cardiopulmonary disease. Dictated by: Asim Charles M.D. on 04/11/2017 at 10:03 Approved by: Asim Charles M.D. on 04/11/2017 at 10:04 Date of Service: 04/11/17 1230 PROCEDURE: X-RAY LEFT FEMUR, TWO VIEWS ([id number]) IMPRESSION: Moderately displaced subtrochanteric spiral fracture of the proximal left femur. Dictated by: Mac Ayala RR Interpreted: Pranav Erazo MD on 04/11/2017 at 14 :37 Approved by: Pranav Erazo M.D. on 04/11/2017 at 17:14 12-lead ECG Not available Assessment & Plan 65-year-old female, with past history as noted below and notable for hypertension and heavy alcohol use presents after a reported accidental fall and resulting severe left hip and shoulder pain. # Acute moderately displaced subtrochanteric spiral fracture of the proximal left femur after ground level fall. Present on admission - Post surgical fixation with open reduction and internal fixation of the left peritrochanteric fracture on 04/12/17 - Appreciate ortho consult. Will followup with recs. - Continue with supportive care # Acute comminuted impacted left humeral neck fracture after ground level fall, present on admission. - Appreciate ortho consult. Will followup with recs - Apply a sling, per ortho consult, which she is to stay on at all times for the next two weeks. - She is to be strict nonweightbearing onto the left upper extremity and maintain in the sling. - Continue with supportive care including IV Morphine prn for now # Acute kidney injury on top of possible chronic kidney disease, present on admission. Improving - Last known Cr is from 2013 which was 1.16 - Avoid nephrotoxic meds - Hold Chlorthalidone - IVF - Followup repeat labs # Acute hyponatremia. Not present on admission. - IVF and followup # History of hypertension. Stable - Continue with home dose Amlodipine, Lisinopril, and Metoprolol - Hold Clorthalidone and hydrate more before anticipated surgery # History of heavy alcohol use - No evidence of active withdrawal and patient denies any history of withdrawals - CIWA protocol as needed # History of tobacco dependence - Patient advised about quitting - Nicotine patch during hospital Dispo: 1-2 days GI Prophylaxis: Not indicated VTE Prophylaxis: Sub-Q Heparin (Unfractionated) VTE Mechanical Devices: Intermittant Pneumatic CD Resuscitation Status: CPR: Attempt Resuscitation (discussed and verified with patient) Connor Rizvi Apr 13, 2017 15:00
[2017-04-13 16:35] VITALS: BP 132/82; PULSE 84; RESP 20; O2SAT 99
[2017-04-13 21:46] VITALS: BP 127/64; PULSE 81; RESP 18; O2SAT 98
--- NOTE | 2017-04-14 00:03 | OP ---
[address] [address] OPERATIVE REPORT PATIENT: TITO ARANGO : 1950 MR#: [id number] ADMIT: 04/11/2017 JOB ID: [id number] DATE OF SURGERY: 04/12/2017 SURGEON: Bernard Aguirre DO SCRATCH FINISHER: Akash Nelson PA-C (Akash Nelson PA-C was necessary for help with exposure and manipulation of the fracture fragments and holding the reduction during the procedure. He was also used for primary closure at the conclusion of the case). PREOPERATIVE DIAGNOSIS(ES): 1. Left peritrochanteric hip fracture. 2. Left proximal humerus fracture. POSTOPERATIVE DIAGNOSIS(ES): 1. Left peritrochanteric hip fracture. 2. Left proximal humerus fracture. PROCEDURE: 1. Open reduction, internal fixation with intramedullary nailing of the left hip peritrochanteric hip fracture. 2. Closed treatment of left proximal humerus fracture without manipulation. BRIEF HISTORY: Ms. Arango is a 66-year-old female that fell at home landing onto her left side. She sustained a comminuted proximal humerus fracture as well as a left comminuted peritrochanteric hip fracture that extended down to the subtrochanteric region. The patient was explained the risks, benefits, and indications to proceed with an open reduction internal fixation with intramedullary nailing of the left peritrochanteric hip fracture. She also was given the choice to proceed with surgery for left shoulder but overall alignment was explained to the patient. Surgery was an option. Due to this being polytrauma, the patient opts to continue with conservative treatment. She understood the risks include, but not limited to, neurovascular injury, tendon injury, infection, failure of fixation, stiffness, persistent pain, all of which may require further intervention. Patient all questions answered. Consent was signed and placed in chart. PROCEDURE IN DETAIL: The patient was brought to the operative suite and placed supine on the operating table. Surgical time-out performed. Everyone in the room was in agreement. After appropriate anesthesia was obtained, the patient was placed onto the fracture table. The left leg was placed into the fracture boot and placed under longitudinal traction. The contralateral leg was abducted, externally rotated and flexed away from the operative field. The reduction was verified under fluoroscopy. There was able to be achieved catholic of length but not adequate reduction closed for the subtrochanteric region. The left hip was then prepped and draped in a sterile fashion. A longitudinal incision was then made along the lateral aspect of subtrochanteric hip fracture. Dissection was carried down through the tensor fascia. The tensor fascia was incised longitudinally followed by exposure to the underlying vastus lateralis. The vastus lateralis was then released and retracted anteriorly allowing for exposure of the fracture site. Manual reduction was then performed utilizing reduction clamps. This was followed by application of a Synthes cable around the fracture site. The cable was tensioned and crimped and cut short. Excellent fixation was achieved to reduce the main fracture fragments. Attention was then turned towards placement of the intramedullary nail. An incision was made just proximal to the greater trochanter and carried down to the tip. A guidewire was placed at the tip of the greater trochanter and advanced down the proximal femur. Appropriate position of the wire was verified under fluoroscopy. Next, the wire was over-reamed to accommodate the proximal aspect of the nail followed by application of ball-tipped guidewire down to the proximal femoral physeal scar. Sequential reaming was performed to 12 mm to allow for an 11 size nail. Next, a Synthes TFNA nail was then advanced over the ball-tipped guidewire into place with the position verified under fluoroscopy. Through the previous subtroch incision, the trocar for the lag screw was easily passed to the lateral cortex of the proximal femur. A guidewire was then placed into a center-center position of the femoral head. The lateral cortex was then breached followed by application of a lag screw. Excellent fixation was achieved with the lag screw. The nail was then locked and the outrigger then removed. AP and lateral projections of the hip were obtained to demonstrate near anatomic reduction, appropriate placement of the nail. Attention was then turned towards the distal locking screws. Two screws were placed in a static fashion utilizing perfect osage technique. Position of the screws were verified under fluoroscopy as well as appropriate length. Copious irrigation was performed followed by closure of the tensor fascia with 0-Vicryl, 2-0 Vicryl for the subcutaneous fat as well as subcutaneous tissues and noé for the skin. The patient had a bulky postoperative dressing applied. ESTIMATED BLOOD LOSS: 500 cc. COMPLICATIONS: None. DISPOSITION: The patient tolerated the procedure well. Anesthesia was reversed. The patient was transferred back to recovery. POSTOPERATIVE PLAN: The patient will be admitted back to the floor. She will be toe-touch weightbearing mainly for transfers as she is unable to place any weight also to the left upper extremity with a walker. She is to stay in the sling at all times. Would not initiate any range of motion of the left extremity until two weeks postop which we will start elbow range of motion. Shoulder range of motion will be held for four weeks postop. IMPLANTS: Synthes TFNA nail with one cable around the subtroch femur fracture. [facility] DIVISIONKatya
[2017-04-14 00:22] VITALS: BP 135/72; PULSE 78; RESP 16; O2SAT 95
--- NOTE | 2017-04-14 00:26 | NUR ---
Pain/IV Per change of shift report, pt ripped IV out on day shift. Pt saline locked, receiving no IV medications/fluids. Fluid intake this shift is 400cc so far, tolerating fluids well. Night hospitalist/supercharger repair supervisor notified, will wait for new IV access until morning, unless told otherwise or pt condition changes. No new orders at this time. Pt reports pain levels 6 to 8 out of 10. Receiving PO Karie 5-10mg. Position change and ice helps alleviate pain as well. FC patent, draining to gravity. Recent CIWA score of 2, related to anxiety/agitation due to pain levels.
[2017-04-14] MEDS: Sodium Chloride LOK Flush 10 mL Syringe IV SCH ×4 (00:30→21:04)
[2017-04-14 04:54] VITALS: BP 152/74; PULSE 82; RESP 18; O2SAT 98
[2017-04-14] MEDS: Pantoprazole 20 mg ER24 Tablet PO SCH ×2 (05:14→08:39)
[2017-04-14] MEDS: Multivit-Miner-Folic Acid-Iron Tablet PO SCH ×2 (08:30→08:39)
[2017-04-14] MEDS: Senna-Docusate 8.6-50 mg Tablet PO SCH ×2 (08:39→21:03)
[2017-04-14] MEDS: MeTOProlol XL 50 mg ER24 Tablet PO SCH (08:39)
[2017-04-14] MEDS: Heparin 5,000 Unit/mL Inj SUBQ SCH ×3 (08:40→23:48)
--- NOTE | 2017-04-14 10:46 | PCM.PNORTH ---
Subjective Date of Service: Apr 14, 2017 Visit Information: Reason for Visit Fall,Lt Intertrochanteric Frx,Lt Humerus Frx Surgery/Surgery Date Post-Op Day # 2 Date of Admission: Apr 11, 2017 at 10:43 Hospital Day # Subjective Patient states she "had a bad night and I will not do well with physical therapy today because I just can't." I encouraged her to think positively as each day she should be progressing as she heals more and more. Patient states her pain is controlled but her leg is stiff and weak. She states she also has a hard time remembering not to use her left arm. She states she is wearing her sling at all times. Postop General: No Complaints, No Shortness of Breath, No Chest Pain Pain Management: PO Objective Exam Objective Sitting up in bed with legs down, sling is in place Vital Signs and I/O Vital Sign - Last Date Time Temp Pulse Resp B/P Pulse Ox O2 Delivery O2 Flow Rate FiO2 04/14/17 04:54 37.2 82 18 152/74 98 Room Air 04/12/17 17:50 8 100 Intake and Output 04/13/17 04/13/17 04/14/17 Cumulative From/Thru 15:00 23:00 07:00 04/11/17 11:58 - 04/14/17 05:56 Intake Total 1250 ml 800 ml 7740 ml Output Total 850 ml 2400 ml 8300 ml Balance 400 ml -1600 ml -560 ml Intake Oral 1100 ml 800 ml 4300 ml IV Total 150 ml 3440 ml Output Urine Total 850 ml 2400 ml 7800 ml Estimated Blood Loss 500 ml # Bowel Movements 0 0 0 Lab & Micro Results Laboratory Tests Test 04/14/17 05:45 Sodium Level 134mEq/L (134-144) Potassium Level 5.0mEq/L (3.5-5.2) Chloride Level 101mEq/L (97-108) Carbon Dioxide Level 22mmol/L (18-29) Blood Urea Nitrogen 29mg/dL (8-27) Creatinine 1.19mg/dL (0.57-1.00) Estimat Glomerular Filtration Rate 65mL/min (>59) Glucose Level 120mg/dL (60-99) Calcium Level 8.4mg/dL (8.5-10.1) Result Diagram: 04/13/17 0500 04/14/17 0545 General Appearance: Alert, Oriented X3, Cooperative, No Acute Distress Extremities: Distal Pulses Palpable, Warm, No Edema, No Compartment Syndrom Noted, Tenderness/Swelling Noted (LUE swollen and bruised), Cyanotic Postop Sensory Motor: Distal Motor Intact, Movement in Toes, Movement in Fingers, Distal Sensation Intact, NVI Distally SURGICAL WOUND : Wound Location/Description Dressings changed to island dressing today. Incisions c/d/i, no erythema or drainage. Incision General Appearance: [place], Well Approximated, No Inflammatory Changes Dressing & Drainage Status: Changed Activity: Ambulate with PT (toe touch WB LLE, NWB LUE) Assessment & Plan Impression POD#2 right hip IM nail with cable fixation of mid shaft femur fracture as well. Patient is also post left proximal humerus fracture treating nonoperatively in a sling. Problems: Plan Patient will begin working with physical therapy today for ADL training and transfers. Patient should be toe touch weightbearing with her left lower extremity. Patient is nonweightbearing to the left upper and will not be able to use a walker or ambulate on her own. She understands that she will need to eat and use the restroom on her own, and have pain well controlled and be cleared for safe transfers before able to discharge to home. Dressing changed today. Change as needed in the future. Patient is complaining of stiffness in her quad and may benefit from heat therapy instead of ice. She should ice her left arm however to reduce swelling. If heat is not effective, ice hip as well. Patient will continue heparin or DVT prophylaxis as per hospitalist recommendation. Patient will need to be converted to home DVT prophylaxis. Lovenox 40 mg subcutaneous daily 2 weeks, then Aspirin 325 mg by mouth twice a day would be sufficient for this. Patient may take aspirin only if unwilling to take the Lovenox. Patient will need wheelchair at home, prescription is in the chart. Thank you to the hospitalist team for managing her other medical conditions. Discharge: Anticipate that patient will be able to be discharged to home vs SNF as soon as postop day 2 or 3, will observe as she works with physical therapy for their recommendation as well. VTE Prophylaxis: Sub-Q Heparin (Unfractionated) Resuscitation Status: CPR: Attempt Resuscitation (discussed and verified with patient) Roshni Lorenzo PA-C Apr 14, 2017 10:46
[2017-04-14 15:00] VITALS: BP 129/71; PULSE 85; RESP 16; O2SAT 96
--- NOTE | 2017-04-14 16:00 | NUR ---
movements / pain pt moved well and needs little encouragement at times; other times she needs much encouragement to move even to side of bed. Pt offers pain medication prior to PT several times but refuses. Then has too much pain to move. Pain medications 10mg Oxycodone and APAP seem to work well for pain. Discussed importance of postop movement with pt. Care continues
--- NOTE | 2017-04-14 16:35 | NUR ---
Social Work: Initial Assessment/Multi-Disciplinary Rounds D: EMR reviewed. Please see Initial Assessment linked to this note for more information. Pt is a 66 y/o female admitted [place] for [place], left intertrochanteric fracture, left humerus per H&P. Pt has a readmit risk score of 1. Pt's insurance is Medicare. PCP is Thomas Dunbar ND. SW met with pt at bedside to conduct initial assessment. Pt was alert and oriented x3. SW explained role and wrote phone number on white board. SW provided "Your Discharge Planning Checklist" and encouraged pt to contact SW for any discharge planning questions. Pt discussed in multidisciplinary rounds. Per MD, pt anticipated to discharge in 1-2 days. PT recommends SNF - pt continues to decline. SW brought this to MDs attention. ordered PT OT RN 3x/week. No other SW needs identified, no other MD orders received. Pt lives at home with her spouse in [place]. Pt is independent with all ADLs. 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 SW encouraged pt to call SW if pt needs assistance acquiring DME - pt agreeable. Pt's spouse was at bedside and both pt and spouse state that pt has ample support at home including an in-home elevator so she will not have to navigate stairs. SW discussed MD order for HH - provided choice list. Pt chose [facility]. Pt agreeable to HH, not agreeable to SNF. SW will make referral to [facility] and have MD complete F2F. SW discussed discharge plan and asked if pt had any concerns regarding discharge. Pt states she is independent and has help from her friends and spouse. Pt stated her spouse will provide transport home via POV when medically stable for discharge. SW encouraged pt to contact SW via number on white board for any discharge planning questions. SW will continue to follow. Pt reported that she has completed DPOA/advanced directive ppw and SW encouraged pt to provide a copy to the hospital. A: Pt who is independent at baseline and has capacity for self-care. ordered PT OT RN 3x/week. Pt provided choice list - chose [facility]. P: Pt anticipated to discharge home in 1-2 days via POV. SW to make referral to [facility] and have MD complete F2F. No other discharge needs identified. No other MD orders received. SW will continue to follow and update notes once referral to [facility] has been made. AN Larios Addendum: 04/14/17 at 1642 by AILYN MEZA Amended: Links added.
--- NOTE | 2017-04-14 17:23 | PCM.PNMED ---
Subjective Date of Service Apr 14, 2017 Subjective Denies any new issues/complaints Exam Vital Signs Vital Sign - Last Date Time Temp Pulse Resp B/P Pulse Ox O2 Delivery O2 Flow Rate FiO2 04/14/17 15:00 36.9 85 16 129/71 96 Room Air 04/12/17 17:50 8 100 Intake and Output 04/13/17 04/13/17 04/14/17 Cumulative From/Thru 15:00 23:00 07:00 04/11/17 11:58 - 04/14/17 05:56 Intake Total 1250 ml 800 ml 7740 ml Output Total 850 ml 2400 ml 8300 ml Balance 400 ml -1600 ml -560 ml Intake Oral 1100 ml 800 ml 4300 ml IV Total 150 ml 3440 ml Output Urine Total 850 ml 2400 ml 7800 ml Estimated Blood Loss 500 ml # Bowel Movements 0 0 0 Exam General: Alert, Cooperative, No Acute Distress Head: Normal Eyes: Scleral Icterus Nose: Mucous Membr Moist/[place] Mouth: Mucous Membr Moist/[place] Neck: Supple Chest & Lungs: Chest Wall Normal, Clear to auscultation bilat Cardiovascular: Regular Rate/Rhythm Pulses: NL DP, PT Abdomen: Non-tender, Non-distended, Normoactive bowel tones, Soft Extremities: No cyanosis/clubbing/edema bilat Psych: Calm, appropriate IVs and Medications Medications Reviewed: Medications were reviewed in detail Lab and Diagnostics Result Diagram: 04/13/17 0500 04/14/17 0545 X-Rays, CTs and MRIs Date of Service: 04/11/17 0852 PROCEDURE: X-RAY LEFT SHOULDER, MINIMUM TWO VIEWS ([id number]) IMPRESSION: Comminuted impacted left humeral neck fracture. Dictated by: Asim Charles M.D. on 04/11/2017 at 10:04 Approved by: Asim Charles M.D. on 04/11/2017 at 10:05 Date of Service: 04/11/17 0852 PROCEDURE: X-RAY LEFT HUMERUS, MINIMUM TWO VIEWS ([id number]) IMPRESSION: Comminuted impacted fracture of the left humeral neck as before. Dictated by: Asim Charles M.D. on 04/11/2017 at 10:05 Approved by: Asim Charles M.D. on 04/11/2017 at 10:07 Date of Service: 04/11/17 0852 PROCEDURE: X-RAY PELVIS W/LAT HIP (LT) ([id number]) IMPRESSION: Moderately displaced subtrochanteric spiral fracture of the proximal left femur. Dictated by: Asim Charles M.D. on 04/11/2017 at 10:01 Approved by: Asim Charles M.D. on 04/11/2017 at 10:03 Date of Service: 04/11/17 0852 PROCEDURE: X-RAY CHEST ONE VIEW ([id number]) IMPRESSION: No acute cardiopulmonary disease. Dictated by: Asim Charles M.D. on 04/11/2017 at 10:03 Approved by: Asim Charles M.D. on 04/11/2017 at 10:04 Date of Service: 04/11/17 1230 PROCEDURE: X-RAY LEFT FEMUR, TWO VIEWS ([id number]) IMPRESSION: Moderately displaced subtrochanteric spiral fracture of the proximal left femur. Dictated by: Mac Ayala [facility] Interpreted: Pranav Erazo MD on 04/11/2017 at 14 :37 Approved by: Pranav Erazo M.D. on 04/11/2017 at 17:14 12-lead ECG Not available Assessment & Plan 65-year-old female, with past history as noted below and notable for hypertension and heavy alcohol use presents after a reported accidental fall and resulting severe left hip and shoulder pain. # Acute moderately displaced subtrochanteric spiral fracture of the proximal left femur after ground level fall. Present on admission - Post surgical fixation with open reduction and internal fixation of the left peritrochanteric fracture on 04/12/17 - Appreciate ortho consult. Will followup with recs. - Continue with supportive care # Acute comminuted impacted left humeral neck fracture after ground level fall, present on admission. - Appreciate ortho consult. Will followup with recs - Apply a sling, per ortho consult, which she is to stay on at all times for the next two weeks. - She is to be strict nonweightbearing onto the left upper extremity and maintain in the sling. - Continue with supportive care including IV Morphine prn for now # Acute kidney injury on top of possible chronic kidney disease, present on admission. Improving - Last known Cr is from 2013 which was 1.16 - Avoid nephrotoxic meds - Hold Chlorthalidone - IVF - Followup repeat labs # Acute hyponatremia. Not present on admission. - IVF and followup # History of hypertension. Stable - Continue with home dose Amlodipine, Lisinopril, and Metoprolol - Held Clorthalidone before anticipated surgery # History of heavy alcohol use - No evidence of active withdrawal and patient denies any history of withdrawals - CIWA protocol as needed # History of tobacco dependence - Patient advised about quitting - Nicotine patch during hospital Dispo: Likely home with home health in AM GI Prophylaxis: Not indicated VTE Prophylaxis: Sub-Q Heparin (Unfractionated) VTE Mechanical Devices: Intermittant Pneumatic CD Resuscitation Status: CPR: Attempt Resuscitation (discussed and verified with patient) Connor Rizvi Apr 14, 2017 17:23
[2017-04-14 19:30] VITALS: BP 144/83; PULSE 88; RESP 18; O2SAT 98
--- NOTE | 2017-04-14 20:57 | NUR ---
; pt states wants alcides left in until a.m. Risks explained to her. Pt states "It doesn't matter, I get urinary tract infections when I have a catheter regardless." Addendum: 04/14/17 at 210 by FREDY KNIGHT RN Day shift rn states Waylon is aware.
--- NOTE | 2017-04-15 00:59 | NUR ---
PAIN; pain rx effective for left shoulder and hip pain. Ortho checks wnl. Dressings c/d/i. Appears to be sleeping well this night.
--- NOTE | 2017-04-15 04:19 | NUR ---
ACTIVITY; pt sat on side of bed about 1/2 hour- tolerated well. Porter d/derian at this time.
[2017-04-15 04:27] VITALS: BP 124/79; PULSE 88; RESP 18; O2SAT 96
[2017-04-15 06:30] LABS: Magnesium 1.8 mg/dL (1.6-2.6)
[2017-04-15] MEDS: Multivit-Miner-Folic Acid-Iron Tablet PO SCH ×2 (08:30→09:14)
[2017-04-15] MEDS: Sodium Chloride LOK Flush 10 mL Syringe IV SCH ×2 (08:30→16:13)
[2017-04-15] MEDS: Senna-Docusate 8.6-50 mg Tablet PO SCH ×2 (09:13→20:30)
[2017-04-15] MEDS: MeTOProlol XL 50 mg ER24 Tablet PO SCH (09:13)
[2017-04-15] MEDS: Heparin 5,000 Unit/mL Inj SUBQ SCH ×2 (09:19→18:02)
[2017-04-15 09:20] VITALS: BP 135/76; PULSE 91; RESP 16; O2SAT 96
--- NOTE | 2017-04-15 09:49 | PCM.PNORTH ---
Subjective Date of Service: Apr 15, 2017 Visit Information: Reason for Visit Fall,Lt Intertrochanteric Frx,Lt Humerus Frx Surgery/Surgery Date Post-Op Day # 3 Date of Admission: Apr 11, 2017 at 10:43 Hospital Day # Subjective Patient states she is feeling drastically better today. She states she feels her leg is in less pain since adding the heatpack to her thigh. She also has been able to lift her leg and move it without the use of a strap. She states her left arm is not causing her pain but the sling does slide around because she is always in bed Postop General: No Complaints, No Shortness of Breath, No Chest Pain Pain Management: PO Objective Exam Objective Patient sitting up in bed with legs down, sling in place Vital Signs and I/O Vital Sign - Last Date Time Temp Pulse Resp B/P Pulse Ox O2 Delivery O2 Flow Rate FiO2 04/15/17 04:27 37.0 88 18 124/79 96 Room Air 04/12/17 17:50 8 100 Intake and Output 04/14/17 04/14/17 04/15/17 Cumulative From/Thru 15:00 23:00 07:00 04/11/17 11:58 - 04/15/17 05:21 Intake Total 1200 ml 800 ml 9740 ml Output Total 3300 ml 800 ml 44803 ml Balance -2100 ml 0 ml -2660 ml Intake Oral 1200 ml 800 ml 6300 ml IV Total 3440 ml Output Urine Total 3300 ml 800 ml 06653 ml Estimated Blood Loss 500 ml # Bowel Movements 0 0 Lab & Micro Results Laboratory Tests Test 04/15/17 05:30 Sodium Level 135mEq/L (134-144) Potassium Level 5.6mEq/L (3.5-5.2) Chloride Level 99mEq/L (97-108) Carbon Dioxide Level 23mmol/L (18-29) Blood Urea Nitrogen 33mg/dL (8-27) Creatinine 1.30mg/dL (0.57-1.00) Estimat Glomerular Filtration Rate 59mL/min (>59) Glucose Level 160mg/dL (60-99) Calcium Level 8.7mg/dL (8.5-10.1) Magnesium Level 1.8mg/dL (1.6-2.6) Result Diagram: 04/13/17 0500 04/15/17 0530 General Appearance: Alert, Oriented X3, Cooperative, No Acute Distress Extremities: Distal Pulses Palpable, No Compartment Syndrom Noted, Thigh & Calf Soft/Nontender, Tenderness/Swelling Noted (Swelling around left arm and into elbow) Postop Sensory Motor: Distal Motor Intact, Movement in Toes, Movement in Fingers, Distal Sensation Intact, NVI Distally SURGICAL WOUND : Incision General Appearance: [place], Well Approximated, No Inflammatory Changes Dressing & Drainage Status: Changed Activity: Ambulate with PT (toe touch WB LLE, NWB LUE) Assessment & Plan Impression POD#3 right hip IM nail with cable fixation of mid shaft femur fracture as well. Patient is also post left proximal humerus fracture treating nonoperatively in a sling. Problems: Plan Patient will work with physical therapy today for ADL training and transfers. Patient should be toe touch weightbearing with her left lower extremity. Patient is nonweightbearing to the left upper and will not be able to use a walker or ambulate on her own. She understands that she will need to eat and use the restroom on her own, and have pain well controlled and be cleared for safe transfers before able to discharge to home. Dressing should be changed as needed in the future. Utilize ice for swelling and heat for cramping. Patient will continue heparin or DVT prophylaxis as per hospitalist recommendation. Patient will need to be converted to home DVT prophylaxis. Lovenox 40 mg subcutaneous daily 2 weeks, then Aspirin 325 mg by mouth twice a day would be sufficient for this. Patient may take aspirin only if unwilling to take the Lovenox. Thank you to the hospitalist team for managing her other medical conditions. Orthopedics will sign off at this point. Discharge: Anticipate that patient will be able to be discharged to home vs SNF in 1-2 days, will observe as she works with physical therapy for their recommendation as well. VTE Prophylaxis: Sub-Q Heparin (Unfractionated) Resuscitation Status: CPR: Attempt Resuscitation (discussed and verified with patient) Roshni Lorenzo PA-C Apr 15, 2017 09:49
[2017-04-15] MEDS: 0.9% Sodium Chloride 1,000 ML IV SCH ×2 (11:38→21:44)
--- NOTE | 2017-04-15 15:34 | PCM.PNMED ---
Subjective Date of Service Apr 15, 2017 Subjective Denies any new issues/complaints Exam Vital Signs Vital Sign - Last Date Time Temp Pulse Resp B/P Pulse Ox O2 Delivery O2 Flow Rate FiO2 04/15/17 09:20 36.1 91 16 135/76 96 Room Air 04/12/17 17:50 8 100 Intake and Output 04/14/17 04/14/17 04/15/17 Cumulative From/Thru 15:00 23:00 07:00 04/11/17 11:58 - 04/15/17 05:21 Intake Total 1200 ml 800 ml 9740 ml Output Total 3300 ml 800 ml 81426 ml Balance -2100 ml 0 ml -2660 ml Intake Oral 1200 ml 800 ml 6300 ml IV Total 3440 ml Output Urine Total 3300 ml 800 ml 27620 ml Estimated Blood Loss 500 ml # Bowel Movements 0 0 Exam General: Alert, Cooperative, No Acute Distress Head: Normal Eyes: Scleral Icterus Nose: Mucous Membr Moist/[place] Mouth: Mucous Membr Moist/[place] Neck: Supple Chest & Lungs: Chest Wall Normal, Clear to auscultation bilat Cardiovascular: Regular Rate/Rhythm Pulses: NL DP, PT Abdomen: Non-tender, Non-distended, Normoactive bowel tones, Soft Extremities: No cyanosis/clubbing/edema bilat Psych: Calm, appropriate IVs and Medications Medications Reviewed: Medications were reviewed in detail Lab and Diagnostics Result Diagram: 04/13/17 0500 04/15/17 0530 X-Rays, CTs and MRIs Date of Service: 04/11/17 0852 PROCEDURE: X-RAY LEFT SHOULDER, MINIMUM TWO VIEWS ([id number]) IMPRESSION: Comminuted impacted left humeral neck fracture. Dictated by: Asim Charles M.D. on 04/11/2017 at 10:04 Approved by: Asim Charles M.D. on 04/11/2017 at 10:05 Date of Service: 04/11/1752 PROCEDURE: X-RAY LEFT HUMERUS, MINIMUM TWO VIEWS ([id number]) IMPRESSION: Comminuted impacted fracture of the left humeral neck as before. Dictated by: Asim Charles M.D. on 04/11/2017 at 10:05 Approved by: Asim Charles M.D. on 04/11/2017 at 10:07 Date of Service: 04/11/17 0852 PROCEDURE: X-RAY PELVIS W/LAT HIP (LT) ([id number]) IMPRESSION: Moderately displaced subtrochanteric spiral fracture of the proximal left femur. Dictated by: Asim Charles M.D. on 04/11/2017 at 10:01 Approved by: Asim Charles M.D. on 04/11/2017 at 10:03 Date of Service: 04/11/17 0852 PROCEDURE: X-RAY CHEST ONE VIEW ([id number]) IMPRESSION: No acute cardiopulmonary disease. Dictated by: Asim Charles M.D. on 04/11/2017 at 10:03 Approved by: Asim Charles M.D. on 04/11/2017 at 10:04 Date of Service: 04/11/17 1230 PROCEDURE: X-RAY LEFT FEMUR, TWO VIEWS ([id number]) IMPRESSION: Moderately displaced subtrochanteric spiral fracture of the proximal left femur. Dictated by: Mac Ayala RR Interpreted: Pranav Erazo MD on 04/11/2017 at 14 :37 Approved by: Pranav Erazo M.D. on 04/11/2017 at 17:14 12-lead ECG Not available Assessment & Plan 65-year-old female, with past history as noted below and notable for hypertension and heavy alcohol use presents after a reported accidental fall and resulting severe left hip and shoulder pain. # Acute moderately displaced subtrochanteric spiral fracture of the proximal left femur after ground level fall. Present on admission - Post surgical fixation with open reduction and internal fixation of the left peritrochanteric fracture on 04/12/17 - Appreciate ortho consult. Will followup with recs. - Lovenox 40 mg subcutaneous daily 2 weeks, then Aspirin 325 mg by mouth twice a day would be sufficient for this. Patient may take aspirin only if unwilling to take the Lovenox. - Continue with supportive care # Acute comminuted impacted left humeral neck fracture after ground level fall, present on admission. - Appreciate ortho consult. Will followup with recs - Apply a sling, per ortho consult, which she is to stay on at all times for the next two weeks. - She is to be strict nonweightbearing onto the left upper extremity and maintain in the sling. - Continue with supportive care including IV Morphine prn for now # Acute kidney injury on top of possible chronic kidney disease, present on admission. - Was improving a worse today - Last known Cr is from 2013 which was 1.16 - Avoid nephrotoxic meds - Hold Chlorthalidone - IVF - Followup repeat labs # Acute hyperkalemia. Not present on admission - Hold Lisinopril - IVF - Followup repeat labs to ensure resolve # Acute hyponatremia. Not present on admission. - Resolved with IVF # History of hypertension. Stable - Continue with home dose Amlodipine, Lisinopril, and Metoprolol - Held Clorthalidone before anticipated surgery # History of heavy alcohol use - No evidence of active withdrawal and patient denies any history of withdrawals - CIWA protocol as needed # History of tobacco dependence - Patient advised about quitting - Nicotine patch during hospital Dispo: Likely home with home health in AM pending resolution of hyperkalemia and stable renal function GI Prophylaxis: Not indicated VTE Prophylaxis: Sub-Q Heparin (Unfractionated) VTE Mechanical Devices: Intermittant Pneumatic CD Resuscitation Status: CPR: Attempt Resuscitation (discussed and verified with patient) Connor Rizvi Apr 15, 2017 15:34
--- NOTE | 2017-04-15 17:44 | NUR ---
POST-OP PROGRESS Oxicodone 10 mg PO has been effective for pain control. Patient rated her pain as 0/10 at rest. Tolerating liquids PO and her diet well. Denies nausea. No emesis noted. Denies SOB. Patient has been able to get OOB to the wheelchair. PT instructed the patient and her RE: Transfers. Tolerated activity well. Voiding without any problems. Dressing in her LLE is CDI. Sling is in her LUE. Denies numbness/tingling on her LUE/LLE. Dulcolax suppository administered for complaints of constipation. No results at this time. Patient did not want any other laxatives at this time. K-5.6 this morning. NS started at this morning. Re-check K-4.8 this afternoon. Patient has been using her call light appropriately.
[2017-04-15 20:19] VITALS: BP 126/67; PULSE 97; RESP 18; O2SAT 97
[2017-04-16] MEDS: Sodium Chloride LOK Flush 10 mL Syringe IV SCH ×2 (00:30→08:30)
[2017-04-16] MEDS: Heparin 5,000 Unit/mL Inj SUBQ SCH ×2 (01:11→08:32)
[2017-04-16 05:32] VITALS: BP 149/70; PULSE 97; RESP 18; O2SAT 98
--- NOTE | 2017-04-16 06:07 | NUR ---
pain at start of shift pt complained of muscle spasms in her L leg and L shoulder. she said she had told the ortho PA who mentioned ordering her a medication for that specifically however this nurse did not see any muscle relaxers ordered. hospitalist was rehana who ordered 10mg of PO flexeril TID. she was given a dose at bedtime and said it was very effective "amazing". she has only required one dose of oxycodone this shift. she was given another flexeril this AM and said that with the flexeril her pain is almost gone and she does not need the oxycodone. will continue to monitor.
[2017-04-16] MEDS: Pantoprazole 20 mg ER24 Tablet PO SCH (06:37)
[2017-04-16] MEDS: Senna-Docusate 8.6-50 mg Tablet PO SCH (08:30)
[2017-04-16] MEDS: Multivit-Miner-Folic Acid-Iron Tablet PO SCH (08:30)
[2017-04-16] MEDS: MeTOProlol XL 50 mg ER24 Tablet PO SCH (08:31)
[2017-04-16] MEDS ORDERED: CYCL10TA9 PO (10:01)
[2017-04-16] MEDS ORDERED: LOV40 SUBQ (10:01)
[2017-04-16] MEDS ORDERED: NICO1PAT5 TOPICAL (10:01)
[2017-04-16] MEDS ORDERED: Senna/Docusate Sodium PO (10:01)
[2017-04-16] MEDS ORDERED: OXYC5TAB72 PO (10:01)
[2017-04-16] MEDS ORDERED: DOCU-41 PO (10:01)
[2017-04-16] MEDS ORDERED: ASPI325T32 PO (10:10)
[2017-04-16] MEDS: 0.9% Sodium Chloride 1,000 ML IV SCH (10:28)
--- NOTE | 2017-04-16 10:37 | PCM.DIMED ---
Discharge Instructions Date of Service Apr 16, 2017 Dates of Hospitalization Apr 11, 2017 at 10:43 Discharge Diagnosis Discharge Diagnosis # Acute moderately displaced subtrochanteric spiral fracture of the proximal left femur after ground level fall. Present on admission - Post surgical fixation with open reduction and internal fixation of the left peritrochanteric fracture on 04/12/17 # Acute comminuted impacted left humeral neck fracture after ground level fall, present on admission. # Acute kidney injury on top of possible chronic kidney disease, present on admission. Improved # Acute hyperkalemia. Not present on admission. Resolved. # Acute hyponatremia. Not present on admission. Resolved. # History of hypertension. Stable # History of alcohol use without any sign of withdrawal during this hospitalization. # History of tobacco dependence Medication Instructions Additional med instructions Lovenox 40 mg subcutaneous daily 2 weeks, then Aspirin 325 mg by mouth twice a day x 4 weeks. Hold off on taking Chlorthalidone and instead followup with your primary care provider in about one week to determine if and when to resume this medication. Diet Discharge Diet: Low fat, Low Sodium, Heart Healthy Activity Discharge Activity: Home Health Phyical Therapy (as noted below) Call your provider Call your provider for: Fever or Chills, Shortness of breath, Bleeding, Chest pain, Excessive diarrhea Patient Instructions Patient Instructions Seek immediate medical attention if any new or worsening signs or symptoms occur. Work with physical therapy today for ADL training and transfers. Should be toe touch weightbearing with left lower extremity. Nonweightbearing to the left upper and will not be able to use a walker or ambulate on own. Dressing should be changed as needed in the future. Utilize ice for swelling and heat for cramping. Continue with sling for the left shoulder and to stay on at all times for the next two weeks. Strict nonweightbearing onto the left upper extremity and maintain in the sling. Follow-up plan 1. Followup with primary care provider in 5-7 days 2. Followup with orthopedic surgery (Dr. Phillips covering for Dr. Aguirre) on Sunday04/30/17 at 9:[address] [address] Follow-up Provider: Adilson Phillips MD Follow-up with PCP in: Other (Sunday04/30/17 at 9:15 AM) Provider: Bernard Aguirre DO Mid-level Provider (F9): Thomas Dunbar ND, Masoud Apr 16, 2017 10:37
--- NOTE | 2017-04-16 10:57 | NUR ---
Social Work: Readiness for Discharge/Multidisciplinary Rounds D: EMR reviewed. Pt is on day 5 of hospitalization. Pt discussed in multidisciplinary rounds and is medically stable for discharge home today via POV and to open with . [facility] F2F completed. BART requested MD to include HH needs in discharge instructions. Ike will retrieve F2F. Ike agreeable to open with pt on Sunday/Sunday. A: Pt who is independent at baseline and has capacity for self-care. ordered HH PT OT RN 3x/week. P: Pt to discharge home today with spouse via POV. [facility] RN [facility]week. Pt and spouse updated on discharge plan. Pt reported she has acquired all DME she will need after discharge. PT agreeable. All agreeable to discharge plan. RN updated of pt's readiness for discharge. AN Larios
--- NOTE | 2017-04-16 13:24 | NUR ---
Discharge Pt. discharged to home in w/c with family at 1245 in stable condition. Pt. requested an oxycodone prior to discharge to help with transferring. She states her pain has been well managed with PRN oxycodone and flexeril. Bandage sites are clean dry and intact. Sent home with additional island dressings for PRN changes. Went over instructions and scripts. All belongings with pt. No questions or concerns at this time.
--- NOTE | 2017-04-16 14:49 | NUR ---
Social Work: Discharge D: EMR reviewed. Pt is on day 5 of hospitalization. Pt discussed in multidisciplinary rounds and is medically stable for discharge home today via POV and to open with . Ike at [facility] received F2F and agreeable to open with pt on Sunday/Sunday. A: Pt who is independent at baseline and has capacity for self-care. ordered PT OT RN 3x/week. P: Pt to discharge home today with spouse via POV. Pt accepted to open with [facility] for PT OT RN 3x/week. Pt and spouse updated on discharge plan. Pt reported she has acquired all DME she will need after discharge. PT agreeable. All agreeable to discharge plan. AN Larios
--- NOTE | 2017-04-16 16:08 | PCM.DC.MED ---
Discharge Summary Date of Service Apr 16, 2017 Dates of Hospitalization Date of Hospital Admission Apr 11, 2017 at 10:43 Date of Discharge: Apr 16, 2017 Providers: Admitting Physician: Connor Bal Primary Care Physician: Thomas Dunbar ND Attending Physician: Connor Bal Diagnosis at Time of Discharge Diagnosis at Time of Discharge # Acute moderately displaced subtrochanteric spiral fracture of the proximal left femur after ground level fall. Present on admission - Post surgical fixation with open reduction and internal fixation of the left peritrochanteric fracture on 04/12/17 # Acute comminuted impacted left humeral neck fracture after ground level fall, present on admission. # Acute kidney injury on top of possible chronic kidney disease, present on admission. Improved # Acute hyperkalemia. Not present on admission. Resolved. # Acute hyponatremia. Not present on admission. Resolved. # History of hypertension. Stable # History of alcohol use without any sign of withdrawal during this hospitalization. # History of tobacco dependence Consultations 1. Ortho Procedures XRay, CTs & MRIs Date of Service: 04/11/17 0852 PROCEDURE: X-RAY LEFT SHOULDER, MINIMUM TWO VIEWS ([id number]) IMPRESSION: Comminuted impacted left humeral neck fracture. Dictated by: Asim Charles M.D. on 04/11/2017 at 10:04 Approved by: Asim Charles M.D. on 04/11/2017 at 10:05 Date of Service: 04/11/17 0852 PROCEDURE: X-RAY LEFT HUMERUS, MINIMUM TWO VIEWS ([id number]) IMPRESSION: Comminuted impacted fracture of the left humeral neck as before. Dictated by: Asim Charles M.D. on 04/11/2017 at 10:05 Approved by: Asim Charles M.D. on 04/11/2017 at 10:07 Date of Service: 04/11/17 0852 PROCEDURE: X-RAY PELVIS W/LAT HIP (LT) ([id number]) IMPRESSION: Moderately displaced subtrochanteric spiral fracture of the proximal left femur. Dictated by: Asim Charles M.D. on 04/11/2017 at 10:01 Approved by: Asim Charles M.D. on 04/11/2017 at 10:03 Date of Service: 04/11/17 0852 PROCEDURE: X-RAY CHEST ONE VIEW ([id number]) IMPRESSION: No acute cardiopulmonary disease. Dictated by: Asim Charles M.D. on 04/11/2017 at 10:03 Approved by: Asim Charles M.D. on 04/11/2017 at 10:04 Date of Service: 04/11/17 1230 PROCEDURE: X-RAY LEFT FEMUR, TWO VIEWS ([id number]) IMPRESSION: Moderately displaced subtrochanteric spiral fracture of the proximal left femur. Dictated by: Mac Ayala [facility] Interpreted: Pranav Erazo MD on 04/11/2017 at 14 :37 Approved by: Pranav Erazo M.D. on 04/11/2017 at 17:14 Invasive Procedures DATE OF SURGERY: 04/12/2017 SURGEON: Bernard Aguirre DO PREOPERATIVE DIAGNOSIS(ES): 1. Left peritrochanteric hip fracture. 2. Left proximal humerus fracture. POSTOPERATIVE DIAGNOSIS(ES): 1. Left peritrochanteric hip fracture. 2. Left proximal humerus fracture. PROCEDURE: 1. Open reduction, internal fixation with intramedullary nailing of the left hip peritrochanteric hip fracture. 2. Closed treatment of left proximal humerus fracture without manipulation. IMPLANTS: Synthes TFNA nail with one cable around the subtroch femur fracture. Bernard Aguirre DO 04/13/17 1348 <Electronically signed by Bernard Aguirre DO> 04/15/17 0907 Brief History 65-year-old female, with past history as noted below and notable for hypertension and heavy alcohol use presents after a reported accidental fall and resulting severe left hip and shoulder pain. She says she was in the kitchen and even though she is not sure exactly how she fell she thinks she may have tripped over something. She denies any loss of consciousness or hitting her head. She thinks her left shoulder must have hit the counter before landing on her left hip. She wasn't able to standup due to severe pain and thus EMS was summoned. Per ED report: "Medics were unable to get her off the floor due to her pain so the gave her Ketamine to transport her." Hospital Course # Acute moderately displaced subtrochanteric spiral fracture of the proximal left femur after ground level fall. Present on admission - Post surgical fixation with open reduction and internal fixation of the left peritrochanteric fracture on 04/12/17 - Appreciate ortho consult. Will followup with recs: - Lovenox 40 mg subcutaneous daily 2 weeks, then Aspirin 325 mg by mouth twice a day would be sufficient for this. - Continued with supportive care # Acute comminuted impacted left humeral neck fracture after ground level fall, present on admission. - Appreciate ortho consult. Will followup with recs: - Apply a sling, per ortho consult, which she is to stay on at all times for the next two weeks. - She is to be strict nonweightbearing onto the left upper extremity and maintain in the sling. # Acute kidney injury on top of possible chronic kidney disease, present on admission. - Improved with IVF - Last known Cr is from 2013 which was 1.16 - Held Chlorthalidone during this hospital and recommend continue to hold and followup with PCP on when to resume # Acute hyperkalemia. Not present on admission - Resolved # Acute hyponatremia. Not present on admission. - Resolved with IVF # History of hypertension. Stable - Continue with home dose Amlodipine, Lisinopril, and Metoprolol - Held Clorthalidone as noted above # History of heavy alcohol use - No evidence of active withdrawal during this hospital # History of tobacco dependence - Patient advised about quitting - Nicotine patch offered by day of discharge she reports adequate pain control and denies any new issues/ complaints Exam Vital Signs (Last) Date Time Temp Pulse Resp B/P Pulse Ox O2 Delivery O2 Flow Rate FiO2 04/16/17 05:32 36.8 97 18 149/70 98 Room Air 04/12/17 17:50 8 100 Exam General: Alert, Cooperative, No Acute Distress Head: Normal Eyes: Scleral Icterus Nose: Mucous Membr Moist/Aneta Mouth: Mucous Membr Moist/Aneta Neck: Supple Chest & Lungs: Chest Wall Normal, Clear to auscultation bilat Cardiovascular: Regular Rate/Rhythm Pulses: NL DP, PT Abdomen: Non-tender, Non-distended, Normoactive bowel tones, Soft Extremities: No cyanosis/clubbing/edema bilat Psych: Calm, appropriate Test 04/11/17 09:07 04/11/17 10:25 04/13/17 05:00 04/15/17 05:30 Prothrombin Time 10.1sec (8.1-12.5) Prothromb Time International Ratio 0.95ratio Total Bilirubin 0.5mg/dL (0.0-1.2) Aspartate Amino Transf (AST/SGOT) 49U/L (0-50) Alanine Aminotransferase (ALT/SGPT) 21U/L (0-32) Alkaline Phosphatase 90U/L (25-165) Total Protein 7.0g/dL (6.4-8.4) Albumin 3.7g/dL (3.4-5.0) Alcohols 41mg/dL (0-10) Urine Color Yellow (YELLOW) Urine Appearance Hazy (CLEAR,HAZY) Urine pH 5.0 (5.0-8.0) Urine Specific [place] 1.020 (1.003-1.035) Urine Protein 30mg/dL (NEG,TRACE) Urine Glucose (UA) Negativemg/dL (NEGATIVE) Urine Ketones Negativemg/dL (NEGATIVE) Urine Occult Blood Trace (NEGATIVE) Urine Nitrite Negative (NEGATIVE) Urine Bilirubin Negative (NEGATIVE) Urine Urobilinogen Normalmg/dL (NORMAL) Urine Leukocyte Esterase Negative (NEGATIVE) Urine RBC 0-2/hpf (0-2) Urine WBC 0-5/hpf (0-5) Urine Epithelial Cells Occasional/hpf (NONE-MOD) Urine Crystals Amorphous urates (NONE Urine Bacteria None/hpf (NONE-FEW) Urine Hyaline Casts None/lpf (NONE) Urine Granular Casts None seen (NONE SEEN) Urine Waxy Casts None seen (NONE SEEN) Urine Red Blood Cell Casts None seen (NONE SEEN) Urine White Blood Cell Casts None seen (NONE SEEN) Urine Mucus None seen (None Seen) Urine Trichomonas None seen (NONE SEEN) Urine Yeast None (NONE SEEN) Urinalysis Comment None Urine Culture Reflexed Not indicated White Blood Count 9.5th/mm3 (3.8-10.1) Red Blood Count 3.28mil/mm3 (3.90-5.20) Hemoglobin 10.0g/dL (12.0-15.6) Hematocrit 30.1% (35.0-46.0) Mean Corpuscular Volume 91.8fL (81-100) Mean Corpuscular Hemoglobin 30.5pg (27.0-35.0) Mean Corpuscular Hemoglobin Concent 33.2% (32.0-37.0) Red Cell Distribution Width 12.7% (12.3-15.4) Platelet Count 201bil/L (150-400) Neutrophils (%) (Auto) 79.5% (40-74) Lymphocytes (%) (Auto) 10.2% (14-46) Monocytes (%) (Auto) 9.9% (4-12) Eosinophils (%) (Auto) 0% (0-5) Basophils (%) (Auto) 0.1% (0-3) Magnesium Level 1.8mg/dL (1.6-2.6) Test 04/16/17 05:00 Sodium Level 137mEq/L (134-144) Potassium Level 5.0mEq/L (3.5-5.2) Chloride Level 101mEq/L (97-108) Carbon Dioxide Level 24mmol/L (18-29) Blood Urea Nitrogen 34mg/dL (8-27) Creatinine 1.25mg/dL (0.57-1.00) Estimat Glomerular Filtration Rate 62mL/min (>59) Glucose Level 116mg/dL (60-99) Calcium Level 8.4mg/dL (8.5-10.1) Discharge Medications Discharge Medications ([Senna/Docusate Sodium]) 1 TABLET TABLET 1 TABLET PO BID Prescribed by: CONNOR BAL MD Amlodipine (Amlodipine) 5 Mg Tablet 10 MG PO DAILY (Reported) Aspirin (Aspirin) 325 Mg Tablet 325 MG PO BID Start taking in 2 weeks after finishing course of Enoxaparin (Lovenox). Prescribed by: CONNOR BAL MD Docusate Sodium (Colace) 100 Mg Capsule 100 MG PO BID Prescribed by: CONNOR BAL MD Enoxaparin (Lovenox) 40 Mg/0.4 Ml Syringe 40 MG SUBQ DAILY Prescribed by: CONNOR BAL MD Lisinopril (Lisinopril) 40 Mg Tablet 40 MG PO BID (Reported) Metoprolol Succinate ER (Metoprolol Succinate ER) 50 Mg Tab.er.24h 50 MG PO DAILY (Reported) Omeprazole (Omeprazole) 20 Mg Capsule.dr 20 MG PO DAILY (Reported) As needed Cyclobenzaprine (Cyclobenzaprine) 10 Mg Tablet 10 MG PO TID PRN PRN For Spasm Prescribed by: CONNOR BAL MD Nicotine 14 mg/24 hr Patch (Nicotine 14 mg/24 hr Patch) 1 Each Patch.td24 1 PATCH TOPICAL DAILY PRN PRN For Tobacco Withdrawal Prescribed by: CONNOR BAL MD oxyCODONE (oxyCODONE) 5 Mg Tablet 5-10 MG PO Q4H PRN PRN For Severe Pain Prescribed by: CONNOR BAL MD Additional med instructions Lovenox 40 mg subcutaneous daily 2 weeks, then Aspirin 325 mg by mouth twice a day x 4 weeks. Hold off on taking Chlorthalidone and instead followup with your primary care provider in about one week to determine if and when to resume this medication. Followup Plan Disposition: Home with home health Follow-up plan 1. Followup with primary care provider in 5-7 days 2. Followup with orthopedic surgery (Dr. Phillips covering for Dr. Aguirre) on Sunday04/30/17 at 9:[address] [address] Discharge Diet: Low fat, Low Sodium, Heart Healthy Discharge Activity: Home Health Phyical Therapy (as noted below) Patient Instructions Seek immediate medical attention if any new or worsening signs or symptoms occur. Work with physical therapy today for ADL training and transfers. Should be toe touch weightbearing with left lower extremity. Nonweightbearing to the left upper and will not be able to use a walker or ambulate on own. Dressing should be changed as needed in the future. Utilize ice for swelling and heat for cramping. Continue with sling for the left shoulder and to stay on at all times for the next two weeks. Strict nonweightbearing onto the left upper extremity and maintain in the sling. Follow-up Provider: Adilson Phillips MD Follow-up with PCP in: Other (Sunday04/30/17 at 9:15 AM) Provider: Bernard Aguirre DO Mid-level Provider: Thomas Dunbar ND Time spent 35 min copies to: Thomas Dunbar ND; Bernard Aguirre DO; Adilson Phillips MD, [place] Apr 16, 2017 16:07
== END 2017-04-16 12:50 | disposition home or self-care (01) | DRG 481 ==
LOC: SED 08:49 → OSC 10:43
PROVIDERS: ADMIT Internal Medicine; ATTEND Internal Medicine
PROC: 0QS706Z Reposition Left Upper Femur with Intramedullary Internal Fixation Device, Open Approach (ICD-10-PCS; principal; 2017-04-12 15:00)
DX: S72.22XA Displaced subtrochanteric fracture of left femur, initial encounter for closed fracture (principal); N17.9 Acute kidney failure, unspecified; S42.292A Other displaced fracture of upper end of left humerus, initial encounter for closed fracture; E87.1 Hypo-osmolality and hyponatremia; F10.10 Alcohol abuse, uncomplicated; F17.210 Nicotine dependence, cigarettes, uncomplicated; Y90.2 Blood alcohol level of 40-59 mg/100 ml; W01.0XXA Fall on same level from slipping, tripping and stumbling without subsequent striking against object, initial encounter; Y93.G3 Activity, cooking and baking; Y92.000 Kitchen of unspecified non-institutional (private) residence as the place of occurrence of the external cause; I10 Essential (primary) hypertension; Z98.84 Bariatric surgery status